=== PATIENT | male | born 1930 | race Caucasian/White ===

== ENCOUNTER 2018-10-05 17:24 | Inpatient (IN) | payer MEDICARE, OTHER ==
[2018-10-05] MEDS ORDERED: SODIUM CHLORIDE 0.9% 1,000 ML IV STA (18:20)
[2018-10-05 18:47] LABS: Albumin 3.7 g/dL (3.5-5.0); Calcium 9.7 mg/dL (8.4-10.2); Potassium 4.1 mmol/L (3.5-5.1); Total Bilirubin 2.2 mg/dL (0.2-1.3); Total Protein 6.6 g/dL (6.3-8.2)
[2018-10-05 18:51] LABS: INR 1.1 (<1.2); Prothrombin Time 10.9 sec (9.0-12.0)
[2018-10-05 18:52] LABS: Partial Thromboplastin Time 20.8 sec (22.0-30.0)
[2018-10-05 18:53] LABS: Creatine Kinase 517 U/L (55-170)
--- NOTE | 2018-10-05 18:54 | XR ---
EXAMINATION TYPE: XR chest 2V DATE OF EXAM: 10/05/2018 COMPARISON: 03/24/2015 HISTORY: Shortness of breath and dizziness TECHNIQUE: Frontal and lateral views of the chest are obtained. FINDINGS: Minimal cephalization is seen in combination with cardiomegaly and postsurgical changes of the chest. No sizable pleural effusion or pneumothorax. Osseous structures are grossly intact. IMPRESSION: Minimal pulmonary vascular congestion and cardiomegaly suggest decompensated congestive heart failure.
[2018-10-05 18:56] LABS: Basophils % (A) 0 %; Eosinophils # (A) 0.1 k/uL (0-0.7); Eosinophils % (A) 1 %; HCT 35.6 % (39.0-53.0); HGB 11.6 gm/dL (13.0-17.5); Lymphocytes # (A) 0.6 k/uL (1.0-4.8); Lymphocytes % (A) 6 %; MCH 30.1 pg (25.0-35.0); MCHC 32.6 g/dL (31.0-37.0); MCV 92.3 fL (80.0-100.0); Monocytes # (A) 0.6 k/uL (0-1.0); Monocytes % (A) 7 %; Neutrophils # (A) 7.4 k/uL (1.3-7.7); Neutrophils % (A) 85 %; Platelet Count 161 k/uL (150-450); RBC 3.86 m/uL (4.30-5.90); WBC 8.6 k/uL (3.8-10.6)
[2018-10-05 19:07] LABS: Creatine Kinase MB 1.2 ng/mL (0.0-2.4); Troponin I <0.012 ng/mL (0.000-0.034)
--- NOTE | 2018-10-05 19:33 | ED ---
Dizziness HPI <JohnChandana - Last Filed: 10/05/18 21:54> - General Source: patient, family Mode of arrival: wheelchair Limitations: no limitations <Sunshine Matute - Last Filed: 10/05/18 22:18> - General Chief Complaint: Dizziness Stated Complaint: Fall Time Seen by Provider: 10/05/18 18:03 - History of Present Illness Initial Comments: 88-year-old male patient presents to the emergency department today with chief complaint of dizziness, weakness, and vomiting. Patient states that symptoms started earlier today after having breakfast. States that he had multiple episodes of vomiting. He states that he has been having some discomfort to his upper abdomen and shortness of breath with this. States he has been having diarrhea for the last 2 weeks and has been working with his primary care physician to rule out food ALLERGIES and they did switch his diabetic medication. Denies any fevers or chills with this. Denies any hematuria, dysuria, urinary frequency, urinary urgency. He denies any chest pain, sweats, numbness, tingling. Denies any ear pain or upper respiratory symptoms. Patient denies any recent rash, back pain, numbness, tingling, hematuria, headache, visual changes, or any other complaints. (Sunshine Matute) - Related Data Home Medications Medication Instructions Recorded Confirmed Allopurinol [Zyloprim] 100 mg PO DAILY 10/05/18 10/05/18 Ascorbic Acid [Vitamin C] 250 mg PO DAILY 10/05/18 10/05/18 Aspirin 81 mg PO DAILY 10/05/18 10/05/18 Diclofenac Sodium [Voltaren Gel] 2 gram TOPICAL QID 10/05/18 10/05/18 Fluticasone Nasal [place] [Flonase 2 spr EA NOSTRIL DAILY 10/05/18 10/05/18 Nasal [place]] Gabapentin [Neurontin] 100 mg PO BID 10/05/18 10/05/18 Glimepiride [Amaryl] 2 mg PO AC-[id number] 10/05/18 10/05/18 Levothyroxine Sodium 25 mcg PO DAILY 10/05/18 10/05/18 Lisinopril [Zestril] 5 mg PO DAILY 10/05/18 10/05/18 Meclizine [Antivert] 25 mg PO TID PRN 10/05/18 10/05/18 Metoprolol Tartrate [Lopressor] 25 mg PO BID 10/05/18 10/05/18 Montelukast [Singulair] 10 mg PO HS 10/05/18 10/05/18 Pancreatin 325mg 325 - 650 mg PO AC-TID 10/05/18 10/05/18 Pioglitazone [Actos] 30 mg PO DAILY 10/05/18 10/05/18 Pravastatin Sodium [Pravachol] 20 mg PO HS 10/05/18 10/05/18 Tamsulosin [Flomax] 0.4 mg PO DAILY 10/05/18 10/05/18 Allergies Allergy/AdvReac Type Severity Reaction Status Date / Time No Known Allergies Allergy Verified 10/05/18 19:05 Review of Systems ROS Other: All systems not noted in ROS Statement are negative. <Chandana Lopez - Last Filed: 10/05/18 21:54> ROS Other: All systems not noted in ROS Statement are negative. <Sunshine Matute - Last Filed: 10/05/18 22:18> ROS Statement: Those systems with pertinent positive or pertinent negative responses have been documented in the HPI. Past Medical History Past Medical History: Diabetes Mellitus, Hypertension History of Any Multi-Drug Resistant Organisms: None Reported Past Surgical History: Coronary Bypass/CABG Past Psychological History: No Psychological Hx Reported Smoking Status: Never smoker Past Alcohol Use History: None Reported Past Drug Use History: None Reported <Sunshine Matute - Last Filed: 10/05/18 22:18> General Exam Limitations: no limitations General appearance: alert, in no apparent distress, other (This is a well- developed, well-nourished elderly male patient in no acute distress. Vital signs upon presentation are temperature 98.1F, pulse 79, respirations 18, blood pressure 99/62, pulse ox 97% on room air.) Eye exam: Present: normal appearance, PERRL, EOMI. Absent: scleral icterus, conjunctival injection, periorbital swelling ENT exam: Present: normal exam, normal oropharynx, mucous membranes moist Respiratory exam: Present: normal lung sounds bilaterally. Absent: respiratory distress, wheezes, rales, rhonchi, stridor Cardiovascular Exam: Present: regular rate, normal rhythm, normal heart sounds. Absent: systolic murmur, diastolic murmur, rubs, gallop, clicks GI/Abdominal exam: Present: soft, normal bowel sounds. Absent: distended, tenderness, guarding, rebound, rigid Neurological exam: Present: alert, oriented X3, CN II-XII intact Psychiatric exam: Present: normal affect, normal mood Skin exam: Present: warm, dry, intact, normal color. Absent: rash <Sunshine Matute - Last Filed: 10/05/18 22:18> Vital Signs 10/05/18 10/05/18 10/05/18 17:38 18:30 19:00 Temperature 98.1 F Pulse Rate 79 83 84 Respiratory 18 18 18 Rate Blood Pressure 99/62 116/73 114/55 O2 Sat by Pulse 97 Oximetry 10/05/18 10/05/18 10/05/18 20:00 20:30 21:00 Temperature Pulse Rate 80 89 90 Respiratory 12 18 16 Rate Blood Pressure 116/66 101/50 109/52 O2 Sat by Pulse Oximetry EKG Findings - EKG Comments: EKG Findings:: EKG obtained at 1810 shows sinus rhythm with a first-degree AV block with frequent PVCs, bigeminy. Ventricular rate is 90, [place] interval 226, QRS duration 86, QT 354, QTC 433. No evidence of ST elevation or depression. <Sunshine Matute - Last Filed: 10/05/18 22:18> Medical Decision Making - Lab Data Result diagrams: 10/05/18 18:15 10/05/18 18:15 <Chandana Lopez - Last Filed: 10/05/18 21:54> - Lab Data Result diagrams: 10/05/18 18:15 10/05/18 18:15 - Radiology Data Radiology results: report reviewed, image reviewed <Sunshine Matute - Last Filed: 10/05/18 22:18> - Medical Decision Making Medical decision making; this is an 88-year-old male here with family. The patient has had diarrhea for 2 weeks. Come in today because of persistent diarrhea and feeling weak. Examination finds only mild tenderness with deep palpation to the right upper quadrant. Labs show mild dehydration with a BUN of 27 creatinine 1.36 and a GFR of 46. His liver enzymes are significantly elevated total bilirubin is 2.2 AST T is over 4000 ALT is over 1900 alk phos is 301. Patient's troponin is less than 0.012. Lipase mildly elevated at 377. the patient is unsure of past hepatitis injections or immunizations. States he hasn't noticed any significant change in color stool those urine does look darker. The case discussed with Dr. Dow , patient be admitted to her service with consultation from GI. Dr. Lopez (Chandana Lopez) 88-year-old male patient presents the emergency department today for complaints of vomiting, but abdominal pain, dizziness, and weakness. Labs reviewed and did reveal elevated BUN and creatinine. Patient did have elevated AST over 4000 and ALT over 1900. Alk phos is 301. Lipase is mildly elevated at 377. Patient denies history of any liver problems. Patient did recently have a change in his diabetic medication due to having diarrhea for the past 2 weeks. Patient is afebrile. Reportedly mild abdominal pain. Vital signs are stable. He'll be admitted to the hospital for IV fluid hydration and evaluation by gastroenterology. Did discuss findings and results with patient and family. They're agreeable with this plan. (Sunshine Matute) - Lab Data Lab Results 10/05/18 10/05/18 10/05/18 Range/Units 18:15 18:15 18:15 WBC 8.6 (3.8-10.6) k/uL RBC 3.86 L (4.30-5.90) m/uL Hgb 11.6 L (13.0-17.5) gm/dL Hct 35.6 L (39.0-53.0) % MCV 92.3 (80.0-100.0) fL MCH 30.1 (25.0-35.0) pg MCHC 32.6 (31.0-37.0) g/dL RDW 14.0 (11.5-15.5) % Plt Count 161 (150-450) k/uL Neutrophils % 85 % Lymphocytes % 6 % Monocytes % 7 % Eosinophils % 1 % Basophils % 0 % Neutrophils # 7.4 (1.3-7.7) k/uL Lymphocytes # 0.6 L (1.0-4.8) k/uL Monocytes # 0.6 (0-1.0) k/uL Eosinophils # 0.1 (0-0.7) k/uL Basophils # 0.0 (0-0.2) k/uL PT (9.0-12.0) sec INR (<1.2) APTT (22.0-30.0) sec Sodium 137 (137-145) mmol/L Potassium 4.1 (3.5-5.1) mmol/L Chloride 105 (98-107) mmol/L Carbon Dioxide 23 (22-30) mmol/L Anion Gap 9 mmol/L BUN 27 H (9-20) mg/dL Creatinine 1.36 H (0.66-1.25) mg/dL Est GFR (CKD-EPI)AfAm 54 (>60 ml/min/1.73 sqM) Est GFR (CKD-EPI)NonAf 46 (>60 ml/min/1.73 sqM) Glucose 211 H (74-99) mg/dL Calcium 9.7 (8.4-10.2) mg/dL Total Bilirubin 2.2 H (0.2-1.3) mg/dL AST 4037 H (17-59) U/L ALT 1963 H (21-72) U/L Alkaline Phosphatase 301 H (38-126) U/L Total Creatine Kinase 517 H (55-170) U/L CK-MB (CK-2) 1.2 (0.0-2.4) ng/mL CK-MB (CK-2) Rel Index 0.2 Troponin I <0.012 (0.000-0.034) ng/mL Total Protein 6.6 (6.3-8.2) g/dL Albumin 3.7 (3.5-5.0) g/dL Amylase (30-110) U/L Lipase (23-300) U/L Urine Color Urine Appearance (Clear) Urine pH (5.0-8.0) Ur Specific [place] (1.001-1.035) Urine Protein (Negative) Urine Glucose (UA) (Negative) Urine Ketones (Negative) Urine Blood (Negative) Urine Nitrite (Negative) Urine Bilirubin (Negative) Urine Urobilinogen (<2.0) mg/dL Ur Leukocyte Esterase (Negative) Urine RBC (0-5) /hpf Urine WBC (0-5) /hpf Ur Squamous Epith Cells (0-4) /hpf Urine Mucus (None) /hpf 10/05/18 10/05/18 10/05/18 Range/Units 18:15 18:15 19:25 WBC (3.8-10.6) k/uL RBC (4.30-5.90) m/uL Hgb (13.0-17.5) gm/dL Hct (39.0-53.0) % MCV (80.0-100.0) fL MCH (25.0-35.0) pg MCHC (31.0-37.0) g/dL RDW (11.5-15.5) % Plt Count (150-450) k/uL Neutrophils % % Lymphocytes % % Monocytes % % Eosinophils % % Basophils % % Neutrophils # (1.3-7.7) k/uL Lymphocytes # (1.0-4.8) k/uL Monocytes # (0-1.0) k/uL Eosinophils # (0-0.7) k/uL Basophils # (0-0.2) k/uL PT 10.9 (9.0-12.0) sec INR 1.1 (<1.2) APTT 20.8 L (22.0-30.0) sec Sodium (137-145) mmol/L Potassium (3.5-5.1) mmol/L Chloride (98-107) mmol/L Carbon Dioxide (22-30) mmol/L Anion Gap mmol/L BUN (9-20) mg/dL Creatinine (0.66-1.25) mg/dL Est GFR (CKD-EPI)AfAm (>60 ml/min/1.73 sqM) Est GFR (CKD-EPI)NonAf (>60 ml/min/1.73 sqM) Glucose (74-99) mg/dL Calcium (8.4-10.2) mg/dL Total Bilirubin (0.2-1.3) mg/dL AST (17-59) U/L ALT (21-72) U/L Alkaline Phosphatase (38-126) U/L Total Creatine Kinase (55-170) U/L CK-MB (CK-2) (0.0-2.4) ng/mL CK-MB (CK-2) Rel Index Troponin I (0.000-0.034) ng/mL Total Protein (6.3-8.2) g/dL Albumin (3.5-5.0) g/dL Amylase 49 (30-110) U/L Lipase 377 H (23-300) U/L Urine Color Yellow Urine Appearance Cloudy (Clear) Urine pH 6.5 (5.0-8.0) Ur Specific [place] 1.012 (1.001-1.035) Urine Protein 1+ H (Negative) Urine Glucose (UA) Negative (Negative) Urine Ketones Negative (Negative) Urine Blood Moderate H (Negative) Urine Nitrite Negative (Negative) Urine Bilirubin Negative (Negative) Urine Urobilinogen 2.0 (<2.0) mg/dL Ur Leukocyte Esterase Negative (Negative) Urine RBC <1 (0-5) /hpf Urine WBC 1 (0-5) /hpf Ur Squamous Epith Cells 1 (0-4) /hpf Urine Mucus Rare H (None) /hpf - Radiology Data Two-view x-ray of the chest is obtained. Report was reviewed in its entirety. Impression by Dr. Naik shows minimal pulmonary vascular congestion and cardiomegaly suggest decompensated congestive heart failure. Ultrasound of the abdomen was obtained. Report was reviewed in its entirety. Impression by Dr. Naik shows slightly heterogenous and coarsened hepatic echotexture suboptimally visualized due to overlying bowel gas. Mild hepatic steatosis is suspected. Subsegmental polyps versus small non-shadowing cholelithiasis is seen. No sonographic evidence of acute cholecystitis. 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 (Sunshine Matute) Disposition <Chandana Lopez - Last Filed: 10/05/18 21:54> Decision to Admit Reason: Admit from EC Decision Date: 10/05/18 Decision Time: 22:18 <Sunshine Matute - Last Filed: 10/05/18 22:18> Clinical Impression: Transaminitis, Abdominal pain, Diarrhea Disposition: ADMITTED IP TO THIS [facility] Condition: Serious Referrals: Guzman Olvera MD [Primary Care Provider] - 1-2 days
[2018-10-05 19:42] LABS: Appearance,Urine Cloudy (Clear); Bilirubin,Urine Negative (Negative); Blood,Urine Moderate (Negative); Color,Urine Yellow; Glucose,Urine (UA) Negative (Negative); Ketones,Urine Negative (Negative); Leukocyte Esterase,Urine Negative (Negative); Mucus,Urine Rare /hpf; Nitrite,Urine Negative (Negative); PH, Urine 6.5 (5.0-8.0); Protein,Urine 1+ (Negative); RBC,Urine <1 /hpf (0-5); Specific Gravity,Urine 1.012 (1.001-1.035); Squamous Epithelial Cell,Urine 1 /hpf (0-4); WBC,Urine 1 /hpf (0-5)
[2018-10-05 19:45] LABS: Amylase 49 U/L (30-110); Lipase 377 U/L (23-300)
--- NOTE | 2018-10-05 21:44 | US ---
EXAMINATION TYPE: US abdomen limited DATE OF EXAM: 10/05/2018 COMPARISON: NONE CLINICAL HISTORY: Elevated Liver Enzymes. EXAM MEASUREMENTS: Liver Length: 15.7 cm Gallbladder Wall: 0.2 cm CBD: 0.5 cm Right Kidney: 9.7 x 4.0 x 4.5 cm Limited due to bowel gas. Pancreas: Obscured by bowel gas Liver: Limited visualization although slightly heterogenous. Gallbladder: echogenic non-shadowing area seen likely polyp versus small stone Evidence for sonographic Malcolm's sign: No CBD: wnl Right Kidney: Cortical thinning is noted. No hydronephrosis. IMPRESSION: 1. Slightly heterogenous and coarsened hepatic echotexture is suboptimally visualized due to overlyin g bowel gas. Mild hepatic steatosis is suspected. 2. Subcentimeter polyps versus small nonshadowing cholelithiasis seen. No sonographic evidence of acu te cholecystitis. 3. 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
[2018-10-05] MEDS ORDERED: NALOXONE 0.4 MG/ML 1 ML VIAL IV PRN (22:02)
[2018-10-05] MEDS ORDERED: ONDANSETRON 4 MG/2 ML VIAL IVP PRN (22:02)
[2018-10-05] MEDS ORDERED: MECLIZINE 12.5 MG TAB PO PRN (22:05)
[2018-10-05] MEDS ORDERED: HYDROmorphone 1 MG/ML 1 ML SYRINGE IVP PRN (22:14)
[2018-10-06 01:17] VITALS: BMI 28.8
[2018-10-06] MEDS: SODIUM CHLORIDE 0.9% 1,000 ML IV SCH ×3 (01:18→21:33)
[2018-10-06 03:22] LABS: Hepatitis A AB IgM Index 0.01; Hepatitis A Antibody IgM NEGATIVE
[2018-10-06] MEDS: LEVOTHYROXINE 25 MCG TAB PO SCH (06:22)
[2018-10-06] MEDS ORDERED: GLIMEPIRIDE 2 MG TAB PO SCH (07:30)
[2018-10-06] MEDS: TAMSULOSIN 0.4 MG CAP.ER.24H PO SCH (09:00)
[2018-10-06] MEDS: LISINOPRIL 5 MG TAB PO SCH (09:01)
[2018-10-06] MEDS: ASCORBIC ACID 500 MG TAB PO SCH (09:01)
[2018-10-06] MEDS: PIOGLITAZONE 30 MG TAB PO SCH (09:01)
[2018-10-06] MEDS: GABAPENTIN 100 MG CAP PO SCH ×2 (09:01→21:33)
[2018-10-06] MEDS: METOPROLOL TARTRATE 50 MG TAB PO SCH ×2 (09:01→21:32)
[2018-10-06] MEDS: ASPIRIN 81 MG PO SCH (09:01)
[2018-10-06] MEDS: DICLOFENAC SODIUM GEL 100 GM TUBE TOPICAL SCH ×4 (09:33→21:32)
[2018-10-06] MEDS: FLUTICASONE 50MCG/SPRAY NASAL 16GM EA NOSTRIL SCH (09:33)
[2018-10-06 09:38] LABS: Basophils % (A) 0 %; Eosinophils # (A) 0.3 k/uL (0-0.7); Eosinophils % (A) 3 %; HCT 30.2 % (39.0-53.0); HGB 10.1 gm/dL (13.0-17.5); Lymphocytes % (A) 11 %; MCH 30.7 pg (25.0-35.0); MCHC 33.5 g/dL (31.0-37.0); MCV 91.5 fL (80.0-100.0); Mean Platelet Volume 8.2; Monocytes # (A) 0.5 k/uL (0-1.0); Monocytes % (A) 5 %; Neutrophils # (A) 7.5 k/uL (1.3-7.7); Neutrophils % (A) 81 %; Platelet Count 165 k/uL (150-450); WBC 9.3 k/uL (3.8-10.6)
[2018-10-06 09:50] LABS: Albumin 3.1 g/dL (3.5-5.0); Calcium 9.1 mg/dL (8.4-10.2); Potassium 4.1 mmol/L (3.5-5.1); Total Bilirubin 2.2 mg/dL (0.2-1.3); Total Protein 5.7 g/dL (6.3-8.2)
[2018-10-06] MEDS ORDERED: IOPAMIDOL-300 CONTRAST 30 ML VIAL (ORAL USE) PO PRN (10:47)
[2018-10-06] MEDS ORDERED: LEVOFLOXACIN 500MG-D5W PMX 500 MG in DEXTROSE/WATER 1 100ML.BAG IVPB SCH (11:00)
[2018-10-06 12:41] LABS: Hepatitis B Core IgM Non-Reactive (Non-Reactive)
[2018-10-06] MEDS: VANCOMYCIN ORAL SOLUTION 250 MG/5 ML BOTTLE PO SCH ×2 (12:45→17:53)
[2018-10-06] MEDS: INSULIN ASPART 100 UNIT/ML 1 ML 10 ML VIAL SQ SCH ×3 (13:15→21:33)
[2018-10-06 13:30] LABS: Glucose,Whole Blood 81 mg/dL (75-99)
--- NOTE | 2018-10-06 14:41 | CT ---
EXAMINATION TYPE: CT abdomen w con DATE OF EXAM: 10/06/2018 COMPARISON: Ultrasound 10/05/2018 HISTORY: Generalized abdominal pain, vomiting, and diarrhea. CT DLP: 822.1 mGycm Automated exposure control for dose reduction was used. TECHNIQUE: Helical acquisition of images was performed from the lung bases through the top of iliac crest to include entire abdomen. CONTRAST: Performed with Oral Contrast and with IV Contrast, patient injected with 80 mL of Isovue 300. FINDINGS: LUNG BASES: Heart is markedly enlarged there subsegmental consolidation at both lung bases with tiny right pleural effusion. Interlobular septal thickening suggest a degree of chronic underlying interst itial lung disease. Sternotomy wires are noted. LIVER/GB: Mild wall thickening of the gallbladder. Could not exclude tiny gallstones as reported by u ltrasound. Mild central periportal edema is nonspecific. No discrete mass identified. PANCREAS: No significant abnormality is seen. SPLEEN: Tiny accessory spleen seen. ADRENALS: No significant abnormality is seen. KIDNEYS: No significant abnormality is seen. BOWEL: Diverticulosis of the visualized colon. Stomach is somewhat decompressed and limited in asses sment. There is a small hiatal hernia. Mild wall thickening of the gastric antrum and proximal duoden um may be related decompression rather than inflammatory change. Diverticulum of the proximal duodenu m suspected. Mild prominence of a few small bowel loops in the upper abdomen may been the basis of an enteritis. Retained fecal debris in the colon limits its assessment. Visualized portion of the hepat ic flexure transverse colon is limited due to incomplete distention. LYMPH NODES: No significant abnormality is seen. OSSEOUS STRUCTURES: Mild hypertrophic change of the spine.. FREE AIR: No free air is visualized. OTHER: Atherosclerotic change of the vasculature. Epicardial lead noted. Mild ectasia of the abdomina l aorta measuring 2.4 cm without evidence of discrete aneurysm. IMPRESSION: 1. Mild periportal central edema is nonspecific of questionable significance. 2. There are prominent small bowel loops in the upper abdomen correlate for an enteritis or ileus. Th ere is slight rotation of the mesentery but there is normal enhancement of the visualized mesenteric vasculature correlate clinically. Note is made only a CT of the abdomen was performed which does not include the pelvic bowel loops. 3. Diverticulosis of colon. 4. Mild gallbladder distention with tiny gallstones polyp as previously noted by ultrasound. 5. Slightly heterogeneous enhancement pattern of the liver can be associated with hepatic steatosis o r hepatitis, diffuse hepatocellular disease. Correlate clinically. No discrete mass. 6 basilar atelec tasis with tiny right effusion and findings suggestive of chronic interstitial lung disease.
--- NOTE | 2018-10-06 15:59 | P.HPIM ---
History of Present Illness H&P Date: 10/06/18 88 years old male with past medical history of diabetes and hypertension comes in with increasing weakness nausea and vomiting. According to patient he was doing well until yesterday when he was having his breakfast followed by multiple episodes of vomiting. Patient also complained of some abdominal pain associated with diarrhea that was happening for the past 1 month. Patient has seen his primary care Dr. cyr for the following symptoms and was evaluated for lactose intolerance or food ALLERGIES. He was recently surgically treated for an abscess on his left shoulder for which patient was on antibiotics for 10 days. According to the patient's symptoms have worsened since he completed the antibiotics. Vitals evaluated suggested a temp of 98.1, blood pressure 99/62 respiratory rate 18. CBC suggested a hemoglobin of 11.6 no leukocytosis 8.6, creatinine 1.36, BUN 27. Further lab suggested a total bilirubin of 2.2, AST 4037, ALT 1963, alkaline phosphatase 301, CK 517, lipase 300 UA was negative for any infection does have some moderate blood. Renal ultrasound was obtained which was nondiagnostic as bowels were covering the liver. Some gallstones were visualized. Cortical renal thinning of medical renal disease seen without hydronephrosis. On evaluation patient feels better denies any nausea or vomiting this morning but does complain of abdominal pain. CT abdomen was ordered which is concerning for mild ileitis enteritis in the upper abdomen. Patient was nothing by mouth to this morning was switched to clear liquid diet. C. diff ordered. Hepatitis panel ordered. GOMEZ, smooth muscles, antimitochondrial antibody, ferritin, CEA ordered. Review of Systems Constitutional: Endorses chills, Denies fever, endorses lethargy, Eyes: denies decreased vision, denies diplopia, denies discharge, denies pain Ears: deny: decreased hearing Ears, nose, mouth and throat: Denies dental pain, Denies headache, Denies nasal discharge, Denies nose pain Cardiovascular: Denies chest pain, Denies decreased exercise tolerance, Denies edema, Denies high blood pressure, Denies irregular heart beat, Denies palpitations, Denies paroxysmal nocturnal dyspnea, Denies rapid heart beat, Denies shortness of breath Respiratory: Denies congestion, Denies cough, Denies cough with sputum, Denies dyspnea, Denies home oxygen, Denies wheezing Gastrointestinal: Endorses diffuse abdominal pain, endorses change in bowel habits, Denies coffee ground emesis, Denies early satiety, Denies excessive gas , Denies heartburn, Denies hematemesis, Denies hematochezia, Denies loss of appetite, Denies nausea, Denies vomiting Genitourinary: Denies dysuria, Denies flank pain, Denies kidney stones, Denies menorrhagia, Denies urgency, Denies urinary frequency Musculoskeletal: Denies gait dysfunction, Denies limitation of motion, Denies morning stiffness, Denies muscle cramps Integumentary: Denies rash, Denies wounds, Denies brittle nails, Denies change in hair/nails, Denies darkening of skin Neurological: Denies balance difficulties, Denies change in speech, Denies double vision, Denies gait dysfunction, Denies loss of vision, Denies motor disturbance, Denies numbness, Denies paralysis, Denies paresthesias, Denies seizures Psychiatric: Denies anxiety, Denies depression Endocrine: Denies excessive sweating, Denies excessive thirst, Denies high blood sugars, Denies palpitations Hematologic/Lymphatic: Denies easy bruising, Denies lymphadenopathy Past Medical History Past Medical History: Asthma, Diabetes Mellitus, GERD/Reflux, Hypertension, Pneumonia Additional Past Medical History / Comment(s): TIA in 2004, vein stripping bilateral legs, arthritis in most joints, History of Any Multi-Drug Resistant Organisms: None Reported Past Surgical History: Coronary Bypass/CABG Past Anesthesia/Blood Transfusion Reactions: No Reported Reaction Past Psychological History: No Psychological Hx Reported Smoking Status: Never smoker Past Alcohol Use History: None Reported Past Drug Use History: None Reported Medications and Allergies Home Medications Medication Instructions Recorded Confirmed Type Allopurinol [Zyloprim] 100 mg PO DAILY 10/05/18 10/05/18 History Ascorbic Acid [Vitamin C] 250 mg PO DAILY 10/05/18 10/05/18 History Aspirin 81 mg PO DAILY 10/05/18 10/05/18 History Diclofenac Sodium [Voltaren Gel] 2 gram TOPICAL QID 10/05/18 10/05/18 History Fluticasone Nasal [place] [Flonase 2 spr EA NOSTRIL DAILY 10/05/18 10/05/18 History Nasal [place]] Gabapentin [Neurontin] 100 mg PO BID 10/05/18 10/05/18 History Glimepiride [Amaryl] 2 mg PO AC-BRKFST 10/05/18 10/05/18 History Levothyroxine Sodium 25 mcg PO DAILY 10/05/18 10/05/18 History Lisinopril [Zestril] 5 mg PO DAILY 10/05/18 10/05/18 History Meclizine [Antivert] 25 mg PO TID PRN 10/05/18 10/05/18 History Metoprolol Tartrate [Lopressor] 25 mg PO BID 10/05/18 10/05/18 History Montelukast [Singulair] 10 mg PO HS 10/05/18 10/05/18 History Pancreatin 325mg 325 - 650 mg PO AC-TID 10/05/18 10/05/18 History Pioglitazone [Actos] 30 mg PO DAILY 10/05/18 10/05/18 History Pravastatin Sodium [Pravachol] 20 mg PO HS 10/05/18 10/05/18 History Tamsulosin [Flomax] 0.4 mg PO DAILY 10/05/18 10/05/18 History Allergies Allergy/AdvReac Type Severity Reaction Status Date / Time No Known Allergies Allergy Verified 10/05/18 19:05 Physical Exam Vitals: Vital Signs Temp Pulse Pulse Pulse Resp BP BP 10/06/18 07:00 98.6 F 70 16 133/72 10/06/18 02:11 98.5 F 96 62 16 118/61 10/05/18 21:00 90 16 109/52 10/05/18 20:30 89 18 101/50 10/05/18 20:00 80 12 116/66 10/05/18 19:00 84 18 114/55 10/05/18 18:30 83 18 116/73 10/05/18 17:38 98.1 F 79 18 99/62 Pulse Ox 10/06/18 07:00 93 L 10/06/18 02:11 10/05/18 21:00 10/05/18 20:30 10/05/18 20:00 10/05/18 19:00 10/05/18 18:30 10/05/18 17:38 97 Intake and Output 10/06/18 10/06/18 10/06/18 06:59 14:59 22:59 Intake Total 400 Balance 400 Intake: Intake, IV Titration 400 Amount Sodium Chloride 0.9% 1, 400 000 ml @ 80 mls/hr IV . [id number] [facility] Rx#:[id number] Other: Weight 83.461 kg - Constitutional General appearance: cooperative, no acute distress, obese - EENT Eyes: anicteric sclerae, PERRLA, normal appearance ENT: Hard of hearing- Neck Neck: no lymphadenopathy, normal ROM, no other, no rigidity, no stridor, no thyromegaly - Respiratory Respiratory: bilateral: CTA, negative: diminished, dullness, rales, rhonchi - Cardiovascular Rhythm: regular Heart sounds: normal: S1, S2 Abnormal Heart Sounds: no systolic murmur, no diastolic murmur, no rub, no S3 Gallop, no S4 Gallop, no click, no other - Gastrointestinal General gastrointestinal: Diffuse abdominal tenderness, soft to palpate no distention bowel sounds present - Integumentary Integumentary: no rash - Neurologic Neurologic: CNII-XII intact - Musculoskeletal Musculoskeletal: gait normal, strength equal bilaterally - Psychiatric Psychiatric: A&O x's 3, appropriate affect Results CBC & Chem 7: 10/06/18 09:08 10/06/18 09:08 Labs: Abnormal Lab Results - Last 24 Hours (Table) 10/05/18 10/05/18 10/05/18 Range/Units 18:15 18:15 18:15 RBC 3.86 L (4.30-5.90) m/uL Hgb 11.6 L (13.0-17.5) gm/dL Hct 35.6 L (39.0-53.0) % Lymphocytes # 0.6 L (1.0-4.8) k/uL APTT (22.0-30.0) sec Chloride (98-107) mmol/L BUN 27 H (9-20) mg/dL Creatinine 1.36 H (0.66-1.25) mg/dL Glucose 211 H (74-99) mg/dL Total Bilirubin 2.2 H (0.2-1.3) mg/dL AST 4037 H (17-59) U/L ALT 1963 H (21-72) U/L Alkaline Phosphatase 301 H (38-126) U/L Total Creatine Kinase 517 H (55-170) U/L Total Protein (6.3-8.2) g/dL Albumin (3.5-5.0) g/dL Lipase (23-300) U/L Urine Protein (Negative) Urine Blood (Negative) Urine Mucus (None) /hpf 10/05/18 10/05/18 10/05/18 Range/Units 18:15 18:15 19:25 RBC (4.30-5.90) m/uL Hgb (13.0-17.5) gm/dL Hct (39.0-53.0) % Lymphocytes # (1.0-4.8) k/uL APTT 20.8 L (22.0-30.0) sec Chloride (98-107) mmol/L BUN (9-20) mg/dL Creatinine (0.66-1.25) mg/dL Glucose (74-99) mg/dL Total Bilirubin (0.2-1.3) mg/dL AST (17-59) U/L ALT (21-72) U/L Alkaline Phosphatase (38-126) U/L Total Creatine Kinase (55-170) U/L Total Protein (6.3-8.2) g/dL Albumin (3.5-5.0) g/dL Lipase 377 H (23-300) U/L Urine Protein 1+ H (Negative) Urine Blood Moderate H (Negative) Urine Mucus Rare H (None) /hpf 10/06/18 10/06/18 Range/Units 09:08 09:08 RBC 3.30 L (4.30-5.90) m/uL Hgb 10.1 L (13.0-17.5) gm/dL Hct 30.2 L (39.0-53.0) % Lymphocytes # (1.0-4.8) k/uL APTT (22.0-30.0) sec Chloride 108 H (98-107) mmol/L BUN 24 H (9-20) mg/dL Creatinine 1.31 H (0.66-1.25) mg/dL Glucose (74-99) mg/dL Total Bilirubin 2.2 H (0.2-1.3) mg/dL AST 1630 H (17-59) U/L ALT 1292 H (21-72) U/L Alkaline Phosphatase 240 H (38-126) U/L Total Creatine Kinase (55-170) U/L Total Protein 5.7 L (6.3-8.2) g/dL Albumin 3.1 L (3.5-5.0) g/dL Lipase (23-300) U/L Urine Protein (Negative) Urine Blood (Negative) Urine Mucus (None) /hpf Thrombosis Risk Factor Assmnt - DVT/VTE Prophylaxis DVT/VTE Prophylaxis: Pharmacologic Prophylaxis ordered, Mechanical Prophylaxis ordered - Choose All That Apply Any of the Below Risk Factors Present?: No Other Risk Factors: No Each Risk Factor Represents 3 Points: Age 75 years or older Thrombosis Risk Factor Assessment Total Risk Factor Score: 3 Thrombosis Risk Factor Assessment Level: Very Low Risk Assessment and Plan Plan: #1 acute colitis/ileitis likely secondary to a C. diff. Other possibility includes viral gastroenteritis, acute hepatitis. GI consult placed. Patient initiated on levofloxacin and oral vancomycin. C. diff pending. Fecal occult pending. Stool culture pending start CT abdomen concerning for ileitis/ enteritis. With heterogenous liver concerning for acute hepatitis versus diffuse hepatocellular disease. No evidence of acute cholangitis #2 acute transaminitis likely secondary to hypoperfusion though acute hepatitis cannot be ruled out. Hepatitis panel ordered. Autoimmune workup pending. Hematocrit mitosis pending. CEA ordered. GI consult and recommendation pending #3 acute anemia. No baseline hemoglobin present. Patient has a drop of hemoglobin from 11.6-10.1 this morning. Fecal occult ordered. I iron panel ordered #4 hypertension continue 5 mg by mouth daily, metoprolol 25 mg twice a day #5 type 2 diabetes and high Hold Demerol. Continue Actos 30 mg by mouth daily #6 BPH continue Flomax 0.4 mg by mouth daily CODE STATUS full code Disposition patient needs at least 1-2 inpatient nights for symptoms resolution
[2018-10-06 16:25] LABS: Hepatitis A Antibody IgM Non-Reactive (Non-Reactive)
[2018-10-06 17:10] LABS: Glucose,Whole Blood 52 mg/dL (75-99)
[2018-10-06 17:14] LABS: Hemoglobin A1C 7.2 % (4.0-6.0)
[2018-10-06 17:33] LABS: Glucose,Whole Blood 77 mg/dL (75-99)
[2018-10-06 20:12] LABS: Glucose,Whole Blood 182 mg/dL (75-99)
--- NOTE | 2018-10-06 22:51 | P.CONS ---
History of Present Illness - Reason for Consult Consult date: 10/06/18 Transaminitis Requesting physician: Iván Reilly - Chief Complaint Dizzy, weak, vomiting - History of Present Illness Very pleasant 88-year-old male with a medical history significant for asthma, hypertension and diabetes who presented to the hospital with complaints of dizziness, weakness and 1 day of vomiting. Per the patient she had multiple episodes of vomiting predominantly food which she had eaten earlier in the day. She denies any hematemesis or coffee-ground emesis. He's had no further vomiting since presenting to the hospital. In addition the patient had associated dizziness and weakness. He also reports upper GI discomfort described as achiness in his lower abdomen below the belly button. He denies any association with eating but reports that pain is improved with bowel movements. The patient also reports that he had had approximately 10 days of loose stool prior to presentation. He reports recent antibiotics which he finished approximately 5 days ago, but is unsure what antibiotics she was on as an outpatient. He reports that bowel movements were loose with no blood or black stool noted. Today he reports only 1 loose bowel movement. He reports that he was having workup for the loose stool as an outpatient with his primary care physician. Presentation to the hospital the patient was noted to have an elevation in his liver enzymes which have subsequently trended down with a total bilirubin of 2.2 which was found to be 2.2 on repeat, alkaline phosphatase 301 trending to 240, AST 4037 trending to 1630, and aLt 1963 trending to 1292. The patient denies any prior EGD had a colonoscopy approximately 2-3 years ago which was significant for polyps. On presentation ultrasound showed a heterogeneous coarsened liver with findings of cholelithiasis versus gallbladder polyps. CT showed a mildly distended gallbladder, prominent small bowel loops a liver with slightly coarsened echotexture and diverticulosis. Review of Systems REVIEW OF SYSTEMS: CARDIO: Denies any chest pain or palpitations. PULMONARY: Denies any shortness of breath or wheezing. GENITOURINARY: No dysuria or hematuria. MUSCULOSKELETAL: Patient does report feeling weak and fatigued. SKIN: Denies any new rashes or lesions, jaundice or pallor. PSYCHIATRIC: Denies any depression or anxiety. NEUROLOGY: Denies headache, denies any new focal deficits. EARS: No tinnitus, discharge or new hearing loss, but he does use hearing assistive devices at baseline. NOSE: No discharge or congestion. EYES: No pain in eyes or change in vision. CONSTITUTIONAL: No recent weight loss. No fever, chills, night sweats. Past Medical History Past Medical History: Asthma, Diabetes Mellitus, GERD/Reflux, Hypertension, Pneumonia Additional Past Medical History / Comment(s): TIA in 2004, vein stripping bilateral legs, arthritis in most joints, History of Any Multi-Drug Resistant Organisms: None Reported Past Surgical History: Coronary Bypass/CABG Past Anesthesia/Blood Transfusion Reactions: No Reported Reaction Past Psychological History: No Psychological Hx Reported Smoking Status: Never smoker Past Alcohol Use History: None Reported Past Drug Use History: None Reported Additional History: Family history: Family history was reviewed with the patient in is noncontributory to current medical presentation. Medications and Allergies Home Medications Medication Instructions Recorded Confirmed Type Allopurinol [Zyloprim] 100 mg PO DAILY 10/05/18 10/05/18 History Ascorbic Acid [Vitamin C] 250 mg PO DAILY 10/05/18 10/05/18 History Aspirin 81 mg PO DAILY 10/05/18 10/05/18 History Diclofenac Sodium [Voltaren Gel] 2 gram TOPICAL QID 10/05/18 10/05/18 History Fluticasone Nasal [place] [Flonase 2 spr EA NOSTRIL DAILY 10/05/18 10/05/18 History Nasal [place]] Gabapentin [Neurontin] 100 mg PO BID 10/05/18 10/05/18 History Glimepiride [Amaryl] 2 mg PO AC-BRKFST 10/05/18 10/05/18 History Levothyroxine Sodium 25 mcg PO DAILY 10/05/18 10/05/18 History Lisinopril [Zestril] 5 mg PO DAILY 10/05/18 10/05/18 History Meclizine [Antivert] 25 mg PO TID PRN 10/05/18 10/05/18 History Metoprolol Tartrate [Lopressor] 25 mg PO BID 10/05/18 10/05/18 History Montelukast [Singulair] 10 mg PO HS 10/05/18 10/05/18 History Pancreatin 325mg 325 - 650 mg PO AC-TID 10/05/18 10/05/18 History Pioglitazone [Actos] 30 mg PO DAILY 10/05/18 10/05/18 History Pravastatin Sodium [Pravachol] 20 mg PO HS 10/05/18 10/05/18 History Tamsulosin [Flomax] 0.4 mg PO DAILY 10/05/18 10/05/18 History Allergies Allergy/AdvReac Type Severity Reaction Status Date / Time No Known Allergies Allergy Verified 10/05/18 19:05 Physical Exam Vitals: Vital Signs Temp Pulse Pulse Resp BP Pulse Ox 10/06/18 21:28 98.4 F 65 18 144/66 93 L 10/06/18 15:00 98.0 F 59 L 16 107/62 93 L 10/06/18 07:00 98.6 F 70 16 133/72 93 L 10/06/18 02:11 98.5 F 96 62 16 118/61 Intake and Output 10/06/18 10/06/18 10/06/18 06:59 14:59 22:59 Intake Total 400 Balance 400 Intake: Intake, IV Titration 400 Amount Sodium Chloride 0.9% 1, 400 000 ml @ 80 mls/hr IV . [id number] [facility] Rx#:[id number] Other: # Voids 2 Weight 83.461 kg On physical examination, patient appears comfortable in no apparent distress. HEAD: Normocephalic, atraumatic. EYES: No scleral icterus. No conjunctival injection. MOUTH: No lesions, tongue midline. NECK: Trachea midline, no gross abnormalities. CHEST: Clear to auscultation with no wheezing or rhonchi appreciated. HEART: Regular rate and rhythm. ABDOMEN: Soft, obese. Bowel sounds are positive. No organomegaly. No guarding or rigidity. EXTREMITIES: No pedal edema. SKIN: No rashes, no jaundice. NEUROLOGIC: Alert and oriented x3. No focal deficits. Results CBC & Chem 7: 10/06/18 09:08 10/06/18 09:08 Labs: Abnormal Lab Results - Last 24 Hours (Table) 10/06/18 10/06/18 10/06/18 Range/Units 09:08 09:08 09:08 RBC 3.30 L (4.30-5.90) m/uL Hgb 10.1 L (13.0-17.5) gm/dL Hct 30.2 L (39.0-53.0) % Chloride 108 H (98-107) mmol/L BUN 24 H (9-20) mg/dL Creatinine 1.31 H (0.66-1.25) mg/dL POC Glucose (mg/dL) (75-99) mg/dL Hemoglobin A1c (4.0-6.0) % Ferritin 2857.3 H (22.0-322.0) ng/mL Total Bilirubin 2.2 H (0.2-1.3) mg/dL AST 1630 H (17-59) U/L ALT 1292 H (21-72) U/L Alkaline Phosphatase 240 H (38-126) U/L Total Protein 5.7 L (6.3-8.2) g/dL Albumin 3.1 L (3.5-5.0) g/dL GOMEZ Screen POSITIVE H (NEGATIVE) SS-B Ab Interp POSITIVE H (NEGATIVE) 10/06/18 10/06/18 10/06/18 Range/Units 09:08 16:55 20:00 RBC (4.30-5.90) m/uL Hgb (13.0-17.5) gm/dL Hct (39.0-53.0) % Chloride (98-107) mmol/L BUN (9-20) mg/dL Creatinine (0.66-1.25) mg/dL POC Glucose (mg/dL) 52 L 182 H (75-99) mg/dL Hemoglobin A1c 7.2 H (4.0-6.0) % Ferritin (22.0-322.0) ng/mL Total Bilirubin (0.2-1.3) mg/dL AST (17-59) U/L ALT (21-72) U/L Alkaline Phosphatase (38-126) U/L Total Protein (6.3-8.2) g/dL Albumin (3.5-5.0) g/dL GOMEZ Screen (NEGATIVE) SS-B Ab Interp (NEGATIVE) CT scan - abdomen: report reviewed (CT showed a mildly distended gallbladder, prominent small bowel loops a liver with slightly coarsened echotexture and diverticulosis.) Assessment and Plan (1) Transaminitis Narrative/Plan: Transaminitis predominantly in a hepatocellular pattern which has improved markedly since presentation, this likely represents hypoperfusion in the setting of vomiting and diarrhea and likely dehydration. Viral hepatitis panel negative and ultrasound and CT negative for any acute biliary process. Differential also includes medication effect, virus or other etiology. Current Visit: Yes Status: Acute Code(s): R74.0 - NONSPEC ELEV OF LEVELS OF TRANSAMNS & LACTIC ACID DEHYDRGNSE SNOMED Code(s): 973934808 (2) Abdominal pain Current Visit: Yes Status: Acute Code(s): R10.9 - UNSPECIFIED ABDOMINAL PAIN SNOMED Code(s): 83177924 (3) Diarrhea Narrative/Plan: Acute complaints of loose stool with fecal studies pending. Improved today. Current Visit: Yes Status: Acute Code(s): R19.7 - DIARRHEA, UNSPECIFIED SNOMED Code(s): 26387528 Plan: Supportive care Okay for diet, started on liquids and advance as tolerated Monitor liver enzymes, can consider full serology if the values trend up, currently improving Ultrasound and CT reviewed Stool studies pending Bentyl added for abdominal pain Thank you for allowing us to participate in the care of this patient we will continue to follow
[2018-10-06] MEDS ORDERED: DICYCLOMINE 10 MG CAP PO PRN (23:15)
[2018-10-07] MEDS: VANCOMYCIN ORAL SOLUTION 250 MG/5 ML BOTTLE PO SCH ×2 (00:51→05:58)
[2018-10-07] MEDS: CHERRY FLAVOR 60 ML BOTTLE PO PRN ×2 (00:52→05:58)
[2018-10-07] MEDS: LEVOTHYROXINE 25 MCG TAB PO SCH (05:58)
[2018-10-07 06:47] LABS: Albumin 3.7 g/dL (3.5-5.0); Calcium 9.5 mg/dL (8.4-10.2); Potassium 3.6 mmol/L (3.5-5.1); Total Bilirubin 2.7 mg/dL (0.2-1.3); Total Protein 6.7 g/dL (6.3-8.2)
[2018-10-07 07:04] LABS: Basophils % (A) 0 %; Eosinophils # (A) 0.2 k/uL (0-0.7); Eosinophils % (A) 2 %; HCT 35.3 % (39.0-53.0); HGB 11.7 gm/dL (13.0-17.5); Lymphocytes % (A) 12 %; MCH 31.3 pg (25.0-35.0); MCHC 33.2 g/dL (31.0-37.0); MCV 94.2 fL (80.0-100.0); Mean Platelet Volume 9.1; Monocytes # (A) 0.4 k/uL (0-1.0); Monocytes % (A) 5 %; Neutrophils # (A) 6.7 k/uL (1.3-7.7); Neutrophils % (A) 80 %; Platelet Count 184 k/uL (150-450); RBC 3.75 m/uL (4.30-5.90); RDW 14.1 % (11.5-15.5); WBC 8.4 k/uL (3.8-10.6)
[2018-10-07 07:06] LABS: Glucose,Whole Blood 56 mg/dL (75-99)
[2018-10-07 07:27] LABS: Glucose,Whole Blood 62 mg/dL (75-99)
[2018-10-07 08:00] LABS: Glucose,Whole Blood 99 mg/dL (75-99)
[2018-10-07 08:12] LABS: Reticulocyte % 1.4 % (0.5-2.0)
[2018-10-07] MEDS: INSULIN ASPART 100 UNIT/ML 1 ML 10 ML VIAL SQ SCH (08:30)
[2018-10-07] MEDS: FLUTICASONE 50MCG/SPRAY NASAL 16GM EA NOSTRIL SCH (08:34)
[2018-10-07] MEDS: LISINOPRIL 5 MG TAB PO SCH (08:35)
[2018-10-07] MEDS: METOPROLOL TARTRATE 50 MG TAB PO SCH ×2 (08:35→22:19)
[2018-10-07] MEDS: ASPIRIN 81 MG PO SCH (08:35)
[2018-10-07] MEDS: GABAPENTIN 100 MG CAP PO SCH ×2 (08:35→22:18)
[2018-10-07] MEDS: ASCORBIC ACID 500 MG TAB PO SCH (08:36)
[2018-10-07] MEDS: PIOGLITAZONE 30 MG TAB PO SCH (08:36)
[2018-10-07] MEDS: TAMSULOSIN 0.4 MG CAP.ER.24H PO SCH (08:36)
[2018-10-07] MEDS: DICLOFENAC SODIUM GEL 100 GM TUBE TOPICAL SCH ×4 (08:43→22:19)
[2018-10-07 09:27] LABS: ANA Pattern Homogeneous; ANA Pattern 2 Nucleolar
[2018-10-07 11:18] LABS: Glucose,Whole Blood 131 mg/dL (75-99)
[2018-10-07 12:56] LABS: Iron Saturation 28.35 (15.00-50.00)
--- NOTE | 2018-10-07 12:56 | P.PN ---
Subjective Progress Note Date: 10/07/18 Principal diagnosis: Elevated liver enzymes Transaminases improving. Denies abdominal pain. Passing nonbloody formed bowel movement this morning. Afebrile. Objective - Vital Signs Vital signs: Vital Signs Temp 97.6 F 10/07/18 07:00 Pulse 76 10/07/18 07:00 Resp 18 10/07/18 07:00 BP 127/66 10/07/18 07:00 Pulse Ox 93 L 10/07/18 07:00 Intake & Output 10/06/18 10/07/18 10/07/18 18:59 06:59 18:59 Intake Total 1280 Balance 1280 Intake: Intake, IV Titration 1280 Amount Sodium Chloride 0.9% 1, 1280 000 ml @ 80 mls/hr IV . [id number] Rx#:[id number] Other: # Voids 2 2 - Exam General appearance: The patient is alert, oriented, in no acute distress. HET: Head is normocephalic and atraumatic. Pupils are equal and reactive. Oropharynx is clear without lesions. Neck: Supple without lymphadenopathy. Trachea midline. Heart: S1 S2. Regular rate and rhythm. Lungs: No crackles or wheezes are heard. Abdomen: Soft, nontender, nondistended with bowel sounds. No peritoneal signs. No palpable organomegaly or masses. Extremities: Normal skin color and turgor. No cyanosis, rash, ulceration, clubbing, or edema. Radial and pedal pulses are 2/4 bilaterally. Neurological: No focal deficits. Strength and sensation are grossly intact. - Labs CBC & Chem 7: 10/07/18 05:58 10/07/18 05:58 Labs: Abnormal Lab Results - Last 24 Hours (Table) 10/06/18 10/06/18 10/06/18 Range/Units 09:08 09:08 16:55 RBC (4.30-5.90) m/uL Hgb (13.0-17.5) gm/dL Hct (39.0-53.0) % Creatinine (0.66-1.25) mg/dL Glucose (74-99) mg/dL POC Glucose (mg/dL) 52 L (75-99) mg/dL Hemoglobin A1c 7.2 H (4.0-6.0) % Ferritin 2857.3 H (22.0-322.0) ng/mL Total Bilirubin (0.2-1.3) mg/dL AST (17-59) U/L ALT (21-72) U/L Alkaline Phosphatase (38-126) U/L GOMEZ Screen POSITIVE H (NEGATIVE) SS-B Ab Interp POSITIVE H (NEGATIVE) 10/06/18 10/07/18 10/07/18 Range/Units 20:00 05:58 05:58 RBC 3.75 L (4.30-5.90) m/uL Hgb 11.7 L (13.0-17.5) gm/dL Hct 35.3 L (39.0-53.0) % Creatinine 1.28 H (0.66-1.25) mg/dL Glucose 46 L* (74-99) mg/dL POC Glucose (mg/dL) 182 H (75-99) mg/dL Hemoglobin A1c (4.0-6.0) % Ferritin (22.0-322.0) ng/mL Total Bilirubin 2.7 H (0.2-1.3) mg/dL AST 889 H (17-59) U/L ALT 944 H (21-72) U/L Alkaline Phosphatase 289 H (38-126) U/L GOMEZ Screen (NEGATIVE) SS-B Ab Interp (NEGATIVE) 10/07/18 10/07/18 10/07/18 Range/Units 06:51 07:15 11:06 RBC (4.30-5.90) m/uL Hgb (13.0-17.5) gm/dL Hct (39.0-53.0) % Creatinine (0.66-1.25) mg/dL Glucose (74-99) mg/dL POC Glucose (mg/dL) 56 L 62 L 131 H (75-99) mg/dL Hemoglobin A1c (4.0-6.0) % Ferritin (22.0-322.0) ng/mL Total Bilirubin (0.2-1.3) mg/dL AST (17-59) U/L ALT (21-72) U/L Alkaline Phosphatase (38-126) U/L GOMEZ Screen (NEGATIVE) SS-B Ab Interp (NEGATIVE) Assessment and Plan (1) Transaminitis Current Visit: Yes Status: Acute Code(s): R74.0 - NONSPEC ELEV OF LEVELS OF TRANSAMNS & LACTIC ACID DEHYDRGNSE SNOMED Code(s): 056860045 (2) Abdominal pain Current Visit: Yes Status: Acute Code(s): R10.9 - UNSPECIFIED ABDOMINAL PAIN SNOMED Code(s): 71124184 (3) Diarrhea Current Visit: Yes Status: Acute Code(s): R19.7 - DIARRHEA, UNSPECIFIED SNOMED Code(s): 66048399 Plan: 1. Transaminases improving total bilirubin slightly elevated without abdominal pain passing formed nonbloody bowel movements. Patient is hungry requesting diet advancement afebrile. 2. Low fiber diet. Daily CMP. We'll continue to follow. Assessment and plan a care discussed with Dr. Rojas
[2018-10-07] MEDS ORDERED: LEVOFLOXACIN 250MG-D5W PMX 250 MG in DEXTROSE/WATER 1 50ML.BAG IVPB SCH (13:00)
--- NOTE | 2018-10-07 13:42 | P.PN ---
Subjective Progress Note Date: 10/07/18 88 years old male with past medical history of diabetes and hypertension comes in with increasing weakness nausea and vomiting. According to patient he was doing well until yesterday when he was having his breakfast followed by multiple episodes of vomiting. Patient also complained of some abdominal pain associated with diarrhea that was happening for the past 1 month. Patient has seen his primary care Dr. cyr for the following symptoms and was evaluated for lactose intolerance or food ALLERGIES. He was recently surgically treated for an abscess on his left shoulder for which patient was on antibiotics for 10 days. According to the patient's symptoms have worsened since he completed the antibiotics. Vitals evaluated suggested a temp of 98.1, blood pressure 99/62 respiratory rate 18. CBC suggested a hemoglobin of 11.6 no leukocytosis 8.6, creatinine 1.36, BUN 27. Further lab suggested a total bilirubin of 2.2, AST 4037, ALT 1963, alkaline phosphatase 301, CK 517, lipase 300 UA was negative for any infection does have some moderate blood. Renal ultrasound was obtained which was nondiagnostic as bowels were covering the liver. Some gallstones were visualized. Cortical renal thinning of medical renal disease seen without hydronephrosis. On evaluation patient feels better denies any nausea or vomiting this morning but does complain of abdominal pain. CT abdomen was ordered which is concerning for mild ileitis enteritis in the upper abdomen. Patient was nothing by mouth to this morning was switched to clear liquid diet. C. diff ordered. Hepatitis panel ordered. GOMEZ, smooth muscles, antimitochondrial antibody, ferritin, CEA ordered. 10/07: Patient has been seen in consultation by Dr. Rojas pills transaminitis as from hypoperfusion secondary to dehydration with recommendations to start clear liquids and advance as tolerated. Bentyl was added for abdominal pain. Repeat lab work reveals total bilirubin 2.7, liver function tests are improving with AST 889, ALT 944 and alkaline phosphatase 289. Blood sugar this morning was 46. GOMEZ is positive, homogenous. SS-B antibody positive. Hepatitis panel was negative. Smooth muscle antibody pending, C. diff and stool studies are uncollected as patient has had formed stools. Vancomycin will be discontinued. Patient denies having any abdominal pain. Review Of Systems: Constitutional: No fever, no chills, no night sweats. No weight change. No weakness, fatigue or lethargy. No daytime sleepiness. EENT: No headache. No blurred vision or double vision, no loss of vision. No loss of Hearing, no ringing in the ears, no dizziness. No nasal drainage or congestion. No epistaxis. No sore throat. Lungs: No shortness of breath, cough, no sputum production. No wheezing. Cardiovascular: No chest pain, no lower extremity edema. No palpitations. No paroxysmal nocturnal dyspnea. No orthopnea. No lightheadedness or dizziness. No syncopal episodes. Abdominal: No abdominal pain. No nausea, vomiting. No diarrhea. No constipation. No bloody or tarry stools.. No loss of appetite. Genitourinary: No dysuria, increased frequency, urgency. No urinary retention. Musculoskeletal: No myalgias. No muscle weakness, no gait dysfunction, no frequent falls. No back pain. No neck pain. Integumentary: No wounds, no lesions. No rash or pruritus. No unusual bruising. No change in hair or nails. Neurologic: No aphasia. No facial droop. No change in mentation. No head injury. No headache. No paralysis. No paresthesia. Psychiatric: No depression. No anxiety. No mood swings. Endocrine: No abnormal blood sugars. No weight change. No excessive sweating or thirst. No cold intolerance. Objective - Vital Signs Vital signs: Vital Signs Temp 97.6 F 10/07/18 07:00 Pulse 76 10/07/18 07:00 Resp 18 10/07/18 07:00 BP 127/66 10/07/18 07:00 Pulse Ox 93 L 10/07/18 07:00 Intake & Output 10/06/18 10/07/18 10/07/18 18:59 06:59 18:59 Intake Total 1280 Balance 1280 Intake: Intake, IV Titration 1280 Amount Sodium Chloride 0.9% 1, 1280 000 ml @ 80 mls/hr IV . [id number] Rx#:[id number] Other: # Voids 2 2 - Exam General appearance: cooperative, no acute distress, obese, patient sitting up in a chair and appears to be comfortable - EENT Eyes: anicteric sclerae, PERRLA, normal appearance ENT: Hard of hearing- Neck Neck: no lymphadenopathy, normal ROM, no other, no rigidity, no stridor, no thyromegaly - Respiratory Respiratory: bilateral: CTA, negative: diminished, dullness, rales, rhonchi - Cardiovascular Rhythm: regular Heart sounds: normal: S1, S2 Abnormal Heart Sounds: no systolic murmur, no diastolic murmur, no rub, no S3 Gallop, no S4 Gallop, no click, no other - Gastrointestinal General gastrointestinal: Diffuse abdominal tenderness, soft to palpate no distention bowel sounds present - Integumentary Integumentary: no rash - Neurologic Neurologic: CNII-XII intact - Musculoskeletal Musculoskeletal: gait normal, strength equal bilaterally - Psychiatric Psychiatric: A&O x's 3, appropriate affect - Labs CBC & Chem 7: 10/07/18 05:58 10/07/18 05:58 Labs: Abnormal Lab Results - Last 24 Hours (Table) 10/06/18 10/06/18 10/06/18 Range/Units 09:08 09:08 09:08 RBC (4.30-5.90) m/uL Hgb (13.0-17.5) gm/dL Hct (39.0-53.0) % Creatinine (0.66-1.25) mg/dL Glucose (74-99) mg/dL POC Glucose (mg/dL) (75-99) mg/dL Hemoglobin A1c 7.2 H (4.0-6.0) % Ferritin 2857.3 H (22.0-322.0) ng/mL Total Bilirubin (0.2-1.3) mg/dL AST 1630 H (17-59) U/L ALT (21-72) U/L Alkaline Phosphatase (38-126) U/L GOMEZ Screen POSITIVE H (NEGATIVE) SS-B Ab Interp POSITIVE H (NEGATIVE) 10/06/18 10/06/18 10/07/18 Range/Units 16:55 20:00 05:58 RBC 3.75 L (4.30-5.90) m/uL Hgb 11.7 L (13.0-17.5) gm/dL Hct 35.3 L (39.0-53.0) % Creatinine (0.66-1.25) mg/dL Glucose (74-99) mg/dL POC Glucose (mg/dL) 52 L 182 H (75-99) mg/dL Hemoglobin A1c (4.0-6.0) % Ferritin (22.0-322.0) ng/mL Total Bilirubin (0.2-1.3) mg/dL AST (17-59) U/L ALT (21-72) U/L Alkaline Phosphatase (38-126) U/L GOMEZ Screen (NEGATIVE) SS-B Ab Interp (NEGATIVE) 10/07/18 10/07/18 10/07/18 Range/Units 05:58 06:51 07:15 RBC (4.30-5.90) m/uL Hgb (13.0-17.5) gm/dL Hct (39.0-53.0) % Creatinine 1.28 H (0.66-1.25) mg/dL Glucose 46 L* (74-99) mg/dL POC Glucose (mg/dL) 56 L 62 L (75-99) mg/dL Hemoglobin A1c (4.0-6.0) % Ferritin (22.0-322.0) ng/mL Total Bilirubin 2.7 H (0.2-1.3) mg/dL AST 889 H (17-59) U/L ALT 944 H (21-72) U/L Alkaline Phosphatase 289 H (38-126) U/L GOMEZ Screen (NEGATIVE) SS-B Ab Interp (NEGATIVE) Assessment and Plan Plan: #1 acute colitis/ileitis likely secondary to a C. diff. Other possibility includes viral gastroenteritis, acute hepatitis. GI consult placed. Patient initiated on levofloxacin and oral vancomycin. C. diff pending. Fecal occult pending. Stool culture pending start CT abdomen concerning for ileitis/ enteritis. With heterogenous liver concerning for acute hepatitis versus diffuse hepatocellular disease. No evidence of acute cholangitis #2 acute transaminitis likely secondary to hypoperfusion though acute hepatitis cannot be ruled out. Hepatitis panel as above Autoimmune workup pending. Hematocrit mitosis pending. CEA ordered. GI consult and recommendation pending #3 acute anemia. No baseline hemoglobin present. Patient has a drop of hemoglobin from 11.6-10.1 this morning. Fecal occult ordered. I iron panel ordered #4 hypertension continue 5 mg by mouth daily, metoprolol 25 mg twice a day #5 type 2 diabetes and high Hold Demerol. Continue Actos 30 mg by mouth daily #6 BPH continue Flomax 0.4 mg by mouth daily CODE STATUS full code Discharge plan: Return home tomorrow Impression and plan of care have been directed as dictated by the signing physician. Therese Francois nurse practitioner acting as scribe for signing physician.
[2018-10-07 17:31] LABS: Glucose,Whole Blood 71 mg/dL (75-99)
[2018-10-07] MEDS: SODIUM CHLORIDE 0.9% 1,000 ML IV SCH (17:49)
[2018-10-07 20:53] LABS: Glucose,Whole Blood 115 mg/dL (75-99)
[2018-10-08] MEDS: SODIUM CHLORIDE 0.9% 1,000 ML IV SCH (05:02)
[2018-10-08] MEDS: LEVOTHYROXINE 25 MCG TAB PO SCH (06:19)
[2018-10-08 07:09] LABS: Glucose,Whole Blood 92 mg/dL (75-99)
[2018-10-08 07:46] VITALS: BP 162/69; PULSE 60; RESP 14; TEMP 99.3
[2018-10-08 08:06] LABS: Basophils % (A) 0 %; Eosinophils # (A) 0.4 k/uL (0-0.7); Eosinophils % (A) 7 %; HCT 30.8 % (39.0-53.0); HGB 10.3 gm/dL (13.0-17.5); Lymphocytes # (A) 0.9 k/uL (1.0-4.8); Lymphocytes % (A) 14 %; MCH 30.9 pg (25.0-35.0); MCHC 33.3 g/dL (31.0-37.0); MCV 92.7 fL (80.0-100.0); Mean Platelet Volume 8.6; Monocytes # (A) 0.4 k/uL (0-1.0); Monocytes % (A) 7 %; Neutrophils # (A) 4.2 k/uL (1.3-7.7); Neutrophils % (A) 70 %; Platelet Count 159 k/uL (150-450); RBC 3.32 m/uL (4.30-5.90); RDW 14.2 % (11.5-15.5)
[2018-10-08 08:17] LABS: Albumin 2.7 g/dL (3.5-5.0); Potassium 4.1 mmol/L (3.5-5.1); Total Protein 5.4 g/dL (6.3-8.2)
[2018-10-08] MEDS: METOPROLOL TARTRATE 50 MG TAB PO SCH (09:07)
[2018-10-08] MEDS: TAMSULOSIN 0.4 MG CAP.ER.24H PO SCH (09:07)
[2018-10-08] MEDS: ASCORBIC ACID 500 MG TAB PO SCH (09:07)
[2018-10-08] MEDS: DICLOFENAC SODIUM GEL 100 GM TUBE TOPICAL SCH (09:08)
[2018-10-08] MEDS: GABAPENTIN 100 MG CAP PO SCH (09:08)
[2018-10-08] MEDS: FLUTICASONE 50MCG/SPRAY NASAL 16GM EA NOSTRIL SCH (09:08)
[2018-10-08] MEDS: LISINOPRIL 5 MG TAB PO SCH (09:08)
[2018-10-08] MEDS: ASPIRIN 81 MG PO SCH (09:08)
--- NOTE | 2018-10-08 10:30 | P.PN ---
Subjective Progress Note Date: 10/08/18 Principal diagnosis: Elevated liver enzymes Transaminases improving. Denies abdominal pain. Tolerating advance diet. Afebrile. Total bilirubin 1.0. AST 265. ALT 492. AP 235. Objective - Vital Signs Vital signs: Vital Signs Temp 99.3 F 10/08/18 07:45 Pulse 60 10/08/18 07:45 Resp 14 10/08/18 09:27 BP 162/69 10/08/18 07:45 Pulse Ox 95 10/08/18 07:45 Intake & Output 10/07/18 10/08/18 10/08/18 18:59 06:59 18:59 Intake Total 643 1390 240 Balance 643 1390 240 Weight 83.461 kg Intake: Intake, IV Titration 640 800 Amount Sodium Chloride 0.9% 1, 640 800 000 ml @ 80 mls/hr IV . [id number] [id number] Rx#:[id number] Oral 590 240 Other 3 Other: Voiding Method Toilet Toilet # Voids 3 1 - Exam General appearance: The patient is alert, oriented, in no acute distress. HET: Head is normocephalic and atraumatic. Pupils are equal and reactive. Oropharynx is clear without lesions. Neck: Supple without lymphadenopathy. Trachea midline. Heart: S1 S2. Regular rate and rhythm. Lungs: No crackles or wheezes are heard. Abdomen: Soft, nontender, nondistended with bowel sounds. No peritoneal signs. No palpable organomegaly or masses. Extremities: Normal skin color and turgor. No cyanosis, rash, ulceration, clubbing, or edema. Radial and pedal pulses are 2/4 bilaterally. Neurological: No focal deficits. Strength and sensation are grossly intact. - Labs CBC & Chem 7: 10/08/18 07:45 10/08/18 07:45 Labs: Abnormal Lab Results - Last 24 Hours (Table) 10/07/18 10/07/18 10/07/18 Range/Units 11:06 17:20 20:42 RBC (4.30-5.90) m/uL Hgb (13.0-17.5) gm/dL Hct (39.0-53.0) % Lymphocytes # (1.0-4.8) k/uL Chloride (98-107) mmol/L POC Glucose (mg/dL) 131 H 71 L 115 H (75-99) mg/dL AST (17-59) U/L ALT (21-72) U/L Alkaline Phosphatase (38-126) U/L Total Protein (6.3-8.2) g/dL Albumin (3.5-5.0) g/dL 10/08/18 10/08/18 Range/Units 07:45 07:45 RBC 3.32 L (4.30-5.90) m/uL Hgb 10.3 L (13.0-17.5) gm/dL Hct 30.8 L (39.0-53.0) % Lymphocytes # 0.9 L (1.0-4.8) k/uL Chloride 109 H (98-107) mmol/L POC Glucose (mg/dL) (75-99) mg/dL AST 265 H (17-59) U/L ALT 492 H (21-72) U/L Alkaline Phosphatase 235 H (38-126) U/L Total Protein 5.4 L (6.3-8.2) g/dL Albumin 2.7 L (3.5-5.0) g/dL Assessment and Plan (1) Transaminitis Narrative/Plan: Improved Current Visit: Yes Status: Acute Code(s): R74.0 - NONSPEC ELEV OF LEVELS OF TRANSAMNS & LACTIC ACID DEHYDRGNSE SNOMED Code(s): 613471186 (2) Abdominal pain Current Visit: Yes Status: Acute Code(s): R10.9 - UNSPECIFIED ABDOMINAL PAIN SNOMED Code(s): 31107645 (3) Diarrhea Current Visit: Yes Status: Acute Code(s): R19.7 - DIARRHEA, UNSPECIFIED SNOMED Code(s): 71203031 Plan: 1. Transaminases improved. Agreeable for discharge. Follow with primary as advised. Assessment and plan a care discussed with Dr. Rojas
--- NOTE | 2018-10-08 12:09 | P.DS ---
Providers Date of admission: 10/05/18 22:18 Expected date of discharge: 10/08/18 Attending physician: Iván Reilly MD Consults: 10/05/18 22:04 Consult Physician Routine Consulting Provider: Mralo Atkins Consult Reason/Comments: Transaminitis; Abdominal Pain Do you want consulting provider notified?: Yes Primary care physician: Guzman Fontaine [facility] Course: 88 years old male with past medical history of diabetes and hypertension comes in with increasing weakness nausea and vomiting. According to patient he was doing well until yesterday when he was having his breakfast followed by multiple episodes of vomiting. Patient also complained of some abdominal pain associated with diarrhea that was happening for the past 1 month. Patient has seen his primary care Dr. cyr for the following symptoms and was evaluated for lactose intolerance or food ALLERGIES. He was recently surgically treated for an abscess on his left shoulder for which patient was on antibiotics for 10 days. According to the patient's symptoms have worsened since he completed the antibiotics. Vitals evaluated suggested a temp of 98.1, blood pressure 99/62 respiratory rate 18. CBC suggested a hemoglobin of 11.6 no leukocytosis 8.6, creatinine 1.36, BUN 27. Further lab suggested a total bilirubin of 2.2, AST 4037, ALT 1963, alkaline phosphatase 301, CK 517, lipase 300 UA was negative for any infection does have some moderate blood. Renal ultrasound was obtained which was nondiagnostic as bowels were covering the liver. Some gallstones were visualized. Cortical renal thinning of medical renal disease seen without hydronephrosis. On evaluation patient feels better denies any nausea or vomiting this morning but does complain of abdominal pain. CT abdomen was ordered which is concerning for mild ileitis enteritis in the upper abdomen. Patient was nothing by mouth to this morning was switched to clear liquid diet. C. diff ordered. Hepatitis panel ordered. GOMEZ, smooth muscles, antimitochondrial antibody, ferritin, CEA ordered. 10/07: Patient has been seen in consultation by Dr. Rojas pills transaminitis as from hypoperfusion secondary to dehydration with recommendations to start clear liquids and advance as tolerated. Bentyl was added for abdominal pain. Repeat lab work reveals total bilirubin 2.7, liver function tests are improving with AST 889, ALT 944 and alkaline phosphatase 289. Blood sugar this morning was 46. GOMEZ is positive, homogenous. SS-B antibody positive. Hepatitis panel was negative. Smooth muscle antibody pending, C. diff and stool studies are uncollected as patient has had formed stools. Vancomycin will be discontinued. Patient denies having any abdominal pain. 10/08: Liver function tests are improving with total bilirubin of 1, AST 265, ALT 492 and alkaline phosphatase 235. Patient is tolerating diet and he denies having any vomiting or diarrhea. He states he has had occasional nausea. GI has recommended a low fiber diet. We will also add and to avoid milk products and fried foods. The patient will be discharged home today in stable condition. Discharge diagnoses: #1 acute ileitis secondary to gastroenteritis #2 acute transaminitis likely secondary to hypoperfusion #3 anemia, possible chronic disease. No baseline available. #4 hypertension continue 5 mg by mouth daily, metoprolol 25 mg twice a day #5 type 2 diabetes and high Hold Demerol. Continue Actos 30 mg by mouth daily #6 BPH continue Flomax 0.4 mg by mouth daily CODE STATUS full code Discharge plan: Return home tomorrow Impression and plan of care have been directed as dictated by the signing physician. Therese Francois nurse practitioner acting as scribe for signing physician. Patient Condition at Discharge: Good Plan - Discharge Summary Discharge Rx Participant: Yes New Discharge Prescriptions: New Dicyclomine [Bentyl] 10 mg PO QID PRN #120 cap PRN Reason: Dyspepsia Levofloxacin [Levaquin] 250 mg PO Q24H #5 tab Continue Pioglitazone [Actos] 30 mg PO DAILY Montelukast [Singulair] 10 mg PO HS Lisinopril [Zestril] 5 mg PO DAILY Gabapentin [Neurontin] 100 mg PO BID Metoprolol Tartrate [Lopressor] 25 mg PO BID Levothyroxine Sodium 25 mcg PO DAILY Allopurinol [Zyloprim] 100 mg PO DAILY Tamsulosin [Flomax] 0.4 mg PO DAILY Aspirin 81 mg PO DAILY Ascorbic Acid [Vitamin C] 250 mg PO DAILY Pancreatin 325mg 325 - 650 mg PO AC-TID Meclizine [Antivert] 25 mg PO TID PRN PRN Reason: Vertigo Fluticasone Nasal [place] [Flonase Nasal [place]] 2 spr EA NOSTRIL DAILY Diclofenac Sodium [Voltaren Gel] 2 gram TOPICAL QID Discontinued Glimepiride [Amaryl] 2 mg PO AC-BRKFST Pravastatin Sodium [Pravachol] 20 mg PO HS Discharge Medication List Allopurinol [Zyloprim] 100 mg PO DAILY 10/05/18 [History] Ascorbic Acid [Vitamin C] 250 mg PO DAILY 10/05/18 [History] Aspirin 81 mg PO DAILY 10/05/18 [History] Diclofenac Sodium [Voltaren Gel] 2 gram TOPICAL QID 10/05/18 [History] Fluticasone Nasal [place] [Flonase Nasal [place]] 2 spr EA NOSTRIL DAILY 10/05/18 [ History] Gabapentin [Neurontin] 100 mg PO BID 10/05/18 [History] Levothyroxine Sodium 25 mcg PO DAILY 10/05/18 [History] Lisinopril [Zestril] 5 mg PO DAILY 10/05/18 [History] Meclizine [Antivert] 25 mg PO TID PRN 10/05/18 [History] Metoprolol Tartrate [Lopressor] 25 mg PO BID 10/05/18 [History] Montelukast [Singulair] 10 mg PO HS 10/05/18 [History] Pancreatin 325mg 325 - 650 mg PO AC-TID 10/05/18 [History] Pioglitazone [Actos] 30 mg PO DAILY 10/05/18 [History] Tamsulosin [Flomax] 0.4 mg PO DAILY 10/05/18 [History] Dicyclomine [Bentyl] 10 mg PO QID PRN #120 cap 10/08/18 [Rx] Levofloxacin [Levaquin] 250 mg PO Q24H #5 tab 10/08/18 [Rx] Follow up Appointment(s)/Referral(s): Guzman Olvera MD [Primary Care Provider] - 10/16/18 8:45 am Chuck Rojas MD [STAFF PHYSICIAN] - 10/21/18 10:30 am Patient Instructions/Handouts: Dicyclomine (By mouth), Levofloxacin (By mouth) , Dehydration (DC) Activity/Diet/Wound Care/Special Instructions: Low fiber, no dairy, avoid fried foods Discharge Disposition: HOME SELF-CARE
[2018-10-08] MEDS ORDERED: LEVOFLOXACIN 250 MG TAB PO SCH (13:00)
== END 2018-10-08 11:24 | disposition home or self-care (01) | DRG 392 ==
LOC: EC 17:24 → 4SSUR 22:18
PROVIDERS: ADMIT Internal Medicine; ATTEND Internal Medicine
DX: A08.4 Viral intestinal infection, unspecified (principal); B17.9 Acute viral hepatitis, unspecified; D64.9 Anemia, unspecified; E11.9 Type 2 diabetes mellitus without complications; E86.0 Dehydration; I10 Essential (primary) hypertension; J45.909 Unspecified asthma, uncomplicated; K21.9 Gastro-esophageal reflux disease without esophagitis; K57.90 Diverticulosis of intestine, part unspecified, without perforation or abscess without bleeding; K80.20 Calculus of gallbladder without cholecystitis without obstruction; K82.8 Other specified diseases of gallbladder; N28.9 Disorder of kidney and ureter, unspecified; N40.0 Benign prostatic hyperplasia without lower urinary tract symptoms; Z79.82 Long term (current) use of aspirin; Z79.84 Long term (current) use of oral hypoglycemic drugs; Z79.899 Other long term (current) drug therapy; Z86.73 Personal history of transient ischemic attack (TIA), and cerebral infarction without residual deficits; Z95.1 Presence of aortocoronary bypass graft
CPT/HCPCS: 36415; 71046; 74160; 76705; 80053; 80074; 81001; 82103; 82150; 82550; 82553; 82728; 83036; 83516; 83540; 83550; 83690; 84484; 85025; 85045; 85610; 85730; 86038; 86039; 86235; 86304; 93005; 96360; 99285

== ENCOUNTER → 2018-11-05 | Outpatient (CLI) | payer MEDICARE, OTHER ==
[2018-11-06 03:04] LABS: Albumin 4.4 g/dL (3.80-4.90); Bilirubin, Conjugated 0.3 mg/dL (0.20-0.40); Bilirubin,Unconjugated 0.5 mg/dL; Globulin 2.2 g/dL (1.6-3.3); Total Bilirubin 0.8 mg/dL (0.3-1.2); Total Protein 6.6 g/dL (6.2-8.2)
== END | disposition home or self-care (01) ==
LOC: LABWHC1 13:54
PROVIDERS: ATTEND Internal Medicine
DX: R74.8 Abnormal levels of other serum enzymes (principal)
CPT/HCPCS: 36415; 80076

== ENCOUNTER → 2018-12-22 | Outpatient (CLI) | payer MEDICARE, OTHER | END | disposition home or self-care (01) | LOC: LABWHC1 08:51 | PROVIDERS: ATTEND Family Medicine | DX: E11.9 Type 2 diabetes mellitus without complications (principal) | CPT/HCPCS: 36415; 83036; 86140 ==

== ENCOUNTER 2019-10-20 11:13 | Inpatient (IN) | payer MEDICARE, OTHER ==
[2019-10-20] MEDS ORDERED: SODIUM CHLORIDE 0.9% 500 ML 500 ML IV STA (11:31)
--- NOTE | 2019-10-20 12:35 | ED ---
General Adult HPI - General Chief complaint: Abdominal Pain Stated complaint: Stomach/back pain Time Seen by Provider: 10/20/19 11:22 Source: patient, RN notes reviewed, old records reviewed Mode of arrival: ambulatory Limitations: no limitations - History of Present Illness Initial comments: 89-year-old male patient passed history of asthma, type 2 diabetes, CABG, presents to ED for cheif complaint of one week of abdominal, flank pain. Patient also reports diarrhea. Reports nausea without emesis. Reports that the pain waxes and wanes. Describes the pain in his right lower quadrant as well as his right posterior axillary line flank region. Denies any chest pain or shortness of breath. Denies any previous surgeries on abdomen. Denies any othe r complaints at this time. Systemic: Pt denies fatigue, fever/chills, rash. Pt denies weakness, night sweats, weight loss. Neuro: Pt denies headache, visual disturbances, syncope or pre-syncope. HEENT: Pt denies ocular discharge or irritation, otalgia, rhinorrhea, pharyngitis or notable lymphadenopathy. Cardiopulmonary: Pt denies chest pain, SOB, heart palpitations, dyspnea on exertion. Abdominal/GI: Pt denies emesis. : Pt denies dysuria, burning w/ urination, frequency/urgency. Denies new onset urinary or bowel incontinence. MSK: Pt denies myalgia, loss of strength or function in extremities. Neuro: Pt denies new onset weakness, paresthesias. - Related Data Home Medications Medication Instructions Recorded Confirmed Allopurinol [Zyloprim] 100 mg PO DAILY 10/05/18 10/05/18 Ascorbic Acid [Vitamin C] 250 mg PO DAILY 10/05/18 10/05/18 Aspirin 81 mg PO DAILY 10/05/18 10/05/18 Diclofenac Sodium [Voltaren Gel] 2 gram TOPICAL QID 10/05/18 10/05/18 Fluticasone Nasal [place] [Flonase 2 spr EA NOSTRIL DAILY 10/05/18 10/05/18 Nasal [place]] Gabapentin [Neurontin] 100 mg PO BID 10/05/18 10/05/18 Levothyroxine Sodium 25 mcg PO DAILY 10/05/18 10/05/18 Lisinopril [Zestril] 5 mg PO DAILY 10/05/18 10/05/18 Meclizine [Antivert] 25 mg PO TID PRN 10/05/18 10/05/18 Metoprolol Tartrate [Lopressor] 25 mg PO BID 10/05/18 10/05/18 Montelukast [Singulair] 10 mg PO HS 10/05/18 10/05/18 Pancreatin 325mg 325 - 650 mg PO AC-TID 10/05/18 10/05/18 Pioglitazone [Actos] 30 mg PO DAILY 10/05/18 10/05/18 Tamsulosin [Flomax] 0.4 mg PO DAILY 10/05/18 10/05/18 Previous Rx's Medication Instructions Recorded Dicyclomine [Bentyl] 10 mg PO QID PRN #120 cap 10/08/18 Levofloxacin [Levaquin] 250 mg PO Q24H #5 tab 10/08/18 Allergies Allergy/AdvReac Type Severity Reaction Status Date / Time No Known Allergies Allergy Verified 10/20/19 11:19 Review of Systems ROS Statement: Those systems with pertinent positive or pertinent negative responses have been documented in the HPI. ROS Other: All systems not noted in ROS Statement are negative. Past Medical History Past Medical History: Asthma, CVA/TIA, Diabetes Mellitus, GERD/Reflux, Hypertension, Osteoarthritis (OA) Additional Past Medical History / Comment(s): TIA in 2004 History of Any Multi-Drug Resistant Organisms: None Reported Past Surgical History: Coronary Bypass/CABG Additional Past Surgical History / Comment(s): vein stripping Past Anesthesia/Blood Transfusion Reactions: No Reported Reaction Past Psychological History: No Psychological Hx Reported Smoking Status: Never smoker Past Alcohol Use History: None Reported Past Drug Use History: None Reported General Exam - General Exam Comments Initial Comments: Constitutional: NAD, AOX3, Pt has pleasant affect. HEENT: NC/AT, trachea midline, neck supple, no lymphadenopathy. Posterior pharynx non erythematous, without exudates. External ears appear normal, without discharge. Mucous membranes moist. Eyes PERRLA, EOM intact. There is no scleral icterus. No pallor noted. Cardiopulmonary: RRR, no murmurs, rubs or gallops, no JVD noted. Lungs CTAB in anterior and posterior [place]. No peripheral edema. Abdominal exam: Abdomen soft and non-distended. Abdomen nontender to palpation in right lower quadrant. No other areas of abdominal tenderness. Right posterior axillary line mildly tender. No skin changes.. Bowel sounds active in LLQ. No hepatosplenomegaly. No ecchymosis Neuro: CN II-XII grossly intact. No nuchal rigidity. No raccon eyes, no yang sign, no hemotympanum. No cervical spinal tenderness. MSK: No posterior calf tenderness bilaterally, homans sign negative bilaterally. Posterior tibialis and radial pulse +2 bilaterally. Sensation intact in upper and lower extremities. Full active ROM in upper and lower extremities, 5/5 stregnth. Limitations: no limitations Course Vital Signs 10/20/19 11:14 Temperature 97.8 F Pulse Rate 79 Respiratory 18 Rate Blood Pressure 138/72 O2 Sat by Pulse 98 Oximetry Medical Decision Making - Medical Decision Making 89-year-old male patient passed history of asthma, type 2 diabetes, CABG, presents to ED for cheif complaint of one week of abdominal, flank pain. Patient also reports diarrhea. Reports nausea without emesis. Reports that the pain waxes and wanes. Describes the pain in his right lower quadrant as well as his right posterior axillary line flank region. Denies any chest pain or shortness of breath. Denies any previous surgeries on abdomen. Denies any other complaints at this time. Patient vital signs stable, afebrile. Physical exam displayed mild right quadrant tenderness. CBC CMP noncompressive. Creatinine stable. UA negative. Lipase negative. EKG nonischemic. CT abdomen and pelvis displayed acute diverticulitis small amount of free air. Cardiomegaly. Patient she had an IV antibiotics will be admitted with surgical consultation. Case discussed with Dr. Figueredo. - Lab Data Result diagrams: 10/20/19 12:30 10/20/19 12:30 Lab Results 10/20/19 10/20/19 10/20/19 Range/Units 12:30 12:30 12:30 WBC 8.0 (3.8-10.6) k/uL RBC 3.45 L (4.30-5.90) m/uL Hgb 10.9 L (13.0-17.5) gm/dL Hct 32.4 L (39.0-53.0) % MCV 93.9 (80.0-100.0) fL MCH 31.7 (25.0-35.0) pg MCHC 33.8 (31.0-37.0) g/dL RDW 13.5 (11.5-15.5) % Plt Count 156 (150-450) k/uL Neutrophils % 76 % Lymphocytes % 12 % Monocytes % 6 % Eosinophils % 3 % Basophils % 0 % Neutrophils # 6.1 (1.3-7.7) k/uL Lymphocytes # 1.0 (1.0-4.8) k/uL Monocytes # 0.5 (0-1.0) k/uL Eosinophils # 0.3 (0-0.7) k/uL Basophils # 0.0 (0-0.2) k/uL PT 10.6 (9.0-12.0) sec INR 1.0 (<1.2) APTT 26.4 (22.0-30.0) sec Sodium 138 (137-145) mmol/L Potassium 4.1 (3.5-5.1) mmol/L Chloride 104 (98-107) mmol/L Carbon Dioxide 25 (22-30) mmol/L Anion Gap 9 mmol/L BUN 27 H (9-20) mg/dL Creatinine 1.29 H (0.66-1.25) mg/dL Est GFR (CKD-EPI)AfAm 57 (>60 ml/min/1.73 sqM) Est GFR (CKD-EPI)NonAf 49 (>60 ml/min/1.73 sqM) Glucose 144 H (74-99) mg/dL Calcium 9.3 (8.4-10.2) mg/dL Total Bilirubin 1.3 (0.2-1.3) mg/dL AST 30 (17-59) U/L ALT 26 (21-72) U/L Alkaline Phosphatase 76 (38-126) U/L Troponin I (0.000-0.034) ng/mL Total Protein 6.2 L (6.3-8.2) g/dL Albumin 3.4 L (3.5-5.0) g/dL Lipase 53 (23-300) U/L Urine Color Urine Appearance (Clear) Urine pH (5.0-8.0) Ur Specific [place] (1.001-1.035) Urine Protein (Negative) Urine Glucose (UA) (Negative) Urine Ketones (Negative) Urine Blood (Negative) Urine Nitrite (Negative) Urine Bilirubin (Negative) Urine Urobilinogen (<2.0) mg/dL Ur Leukocyte Esterase (Negative) Urine RBC (0-5) /hpf Urine WBC (0-5) /hpf Ur Squamous Epith Cells (0-4) /hpf Urine Mucus (None) /hpf 10/20/19 10/20/19 Range/Units 12:30 13:58 WBC (3.8-10.6) k/uL RBC (4.30-5.90) m/uL Hgb (13.0-17.5) gm/dL Hct (39.0-53.0) % MCV (80.0-100.0) fL MCH (25.0-35.0) pg MCHC (31.0-37.0) g/dL RDW (11.5-15.5) % Plt Count (150-450) k/uL Neutrophils % % Lymphocytes % % Monocytes % % Eosinophils % % Basophils % % Neutrophils # (1.3-7.7) k/uL Lymphocytes # (1.0-4.8) k/uL Monocytes # (0-1.0) k/uL Eosinophils # (0-0.7) k/uL Basophils # (0-0.2) k/uL PT (9.0-12.0) sec INR (<1.2) APTT (22.0-30.0) sec Sodium (137-145) mmol/L Potassium (3.5-5.1) mmol/L Chloride (98-107) mmol/L Carbon Dioxide (22-30) mmol/L Anion Gap mmol/L BUN (9-20) mg/dL Creatinine (0.66-1.25) mg/dL Est GFR (CKD-EPI)AfAm (>60 ml/min/1.73 sqM) Est GFR (CKD-EPI)NonAf (>60 ml/min/1.73 sqM) Glucose (74-99) mg/dL Calcium (8.4-10.2) mg/dL Total Bilirubin (0.2-1.3) mg/dL AST (17-59) U/L ALT (21-72) U/L Alkaline Phosphatase (38-126) U/L Troponin I <0.012 (0.000-0.034) ng/mL Total Protein (6.3-8.2) g/dL Albumin (3.5-5.0) g/dL Lipase (23-300) U/L Urine Color Yellow Urine Appearance Clear (Clear) Urine pH 5.5 (5.0-8.0) Ur Specific [place] 1.015 (1.001-1.035) Urine Protein 1+ H (Negative) Urine Glucose (UA) Negative (Negative) Urine Ketones Negative (Negative) Urine Blood Negative (Negative) Urine Nitrite Negative (Negative) Urine Bilirubin Negative (Negative) Urine Urobilinogen <2.0 (<2.0) mg/dL Ur Leukocyte Esterase Negative (Negative) Urine RBC <1 (0-5) /hpf Urine WBC <1 (0-5) /hpf Ur Squamous Epith Cells <1 (0-4) /hpf Urine Mucus Rare H (None) /hpf - EKG Data -: EKG Interpreted by Me (and Dr. Figueredo ) EKG Comments: Ventricular rate 64,. Full 236, QRS 86, QT/QTC 384/396. Sinus rhythm with first-degree AV block. Abnormal EKG. No significant change from prior, no concern for acute ischemia. Disposition Clinical Impression: Diverticulitis of colon with perforation Disposition: ADMITTED IP TO THIS HOSP Condition: Stable Is patient prescribed a controlled substance at d/c from ED?: No Referrals: Guzman Olvera MD [Primary Care Provider] - 1-2 days
[2019-10-20 12:43] LABS: Basophils % (A) 0 %; Eosinophils # (A) 0.3 k/uL (0-0.7); Eosinophils % (A) 3 %; HCT 32.4 % (39.0-53.0); HGB 10.9 gm/dL (13.0-17.5); Lymphocytes % (A) 12 %; MCH 31.7 pg (25.0-35.0); MCHC 33.8 g/dL (31.0-37.0); MCV 93.9 fL (80.0-100.0); Mean Platelet Volume 9.8; Monocytes # (A) 0.5 k/uL (0-1.0); Monocytes % (A) 6 %; Neutrophils # (A) 6.1 k/uL (1.3-7.7); Neutrophils % (A) 76 %; Platelet Count 156 k/uL (150-450); RBC 3.45 m/uL (4.30-5.90); RDW 13.5 % (11.5-15.5)
[2019-10-20 12:53] LABS: Partial Thromboplastin Time 26.4 sec (22.0-30.0); Prothrombin Time 10.6 sec (9.0-12.0)
[2019-10-20 12:57] LABS: Albumin 3.4 g/dL (3.5-5.0); Calcium 9.3 mg/dL (8.4-10.2); Potassium 4.1 mmol/L (3.5-5.1); Total Bilirubin 1.3 mg/dL (0.2-1.3); Total Protein 6.2 g/dL (6.3-8.2)
[2019-10-20 14:19] LABS: Appearance,Urine Clear (Clear); Bilirubin,Urine Negative (Negative); Blood,Urine Negative (Negative); Color,Urine Yellow; Glucose,Urine (UA) Negative (Negative); Ketones,Urine Negative (Negative); Leukocyte Esterase,Urine Negative (Negative); Mucus,Urine Rare /hpf; Nitrite,Urine Negative (Negative); PH, Urine 5.5 (5.0-8.0); Protein,Urine 1+ (Negative); RBC,Urine <1 /hpf (0-5); Specific Gravity,Urine 1.015 (1.001-1.035); Squamous Epithelial Cell,Urine <1 /hpf (0-4); Urobilinogen,Urine <2.0 mg/dL (<2.0); WBC,Urine <1 /hpf (0-5)
[2019-10-20] MEDS ORDERED: PIPERACILLIN-TAZOBACTAM 3.375 GM in SODIUM CHLORIDE 0.9% 100 ML IVPB STA (14:23)
--- NOTE | 2019-10-20 14:30 | CT ---
EXAMINATION TYPE: CT abdomen pelvis wo con DATE OF EXAM: 10/20/2019 COMPARISON: 10/06/2018 HISTORY: Bilateral back pain CT DLP: 689.4 mGycm Automated exposure control for dose reduction was used. TECHNIQUE: Helical acquisition of images was performed from the lung bases through the pelvis. FINDINGS: LUNG BASES: Heart is enlarged there subsegmental consolidation at both lung bases. Sternotomy wires a re noted. Suggestion of cardiac leads correlate clinically. Coronary artery calcification noted. Find ings suggest chronic interstitial lung disease. LIVER/GB: No significant abnormality is appreciated. PANCREAS: No significant abnormality is seen. SPLEEN: No significant abnormality is seen. ADRENALS: No significant abnormality is seen. KIDNEYS: No significant abnormality is seen. ADENOPATHY: None visualized. OSSEOUS STRUCTURES: Hypertrophic and degenerative change of the spine. Arthropathy of the hips. BOWEL: There is an area of bowel wall thickening involving the sigmoid colon on axial image 87 with surrounding diverticula in a pattern most suggestive of acute diverticulitis. There is a small 1 cm a latoya of collection adjacent to the bowel wall likely in the basis of a perforation with small amount o f free air. Differential diagnosis includes perforated diverticulitis as well as perforated neoplasm correlate clinically. OTHER: Prostate prominent in size. There is atherosclerotic change of the vasculature including the a lisa. Aorta measures a maximal diameter of 2.5 cm compatible with ectasia. IMPRESSION: 1. There is bowel wall thickening of the sigmoid colon with numerous diverticula and pericolonic infl ammatory changes most likely in the basis of acute diverticulitis. There is a small air collection ad jacent to the bowel wall suspicious for perforation and small amount of free air. Follow-up to resolu tion to exclude underlying neoplasm. 2. Severe cardiomegaly.
[2019-10-20] MEDS ORDERED: MORPHINE SULFATE 4 MG/ML SYRINGE IV PRN (14:50)
[2019-10-20] MEDS ORDERED: NALOXONE 0.4 MG/ML 1 ML VIAL IV PRN (14:50)
[2019-10-20 17:04] LABS: Glucose,Whole Blood 111 mg/dL (75-99)
[2019-10-20] MEDS ORDERED: hydrALAZINE HCL 20 MG/ML 1 ML VIAL IVP PRN (17:57)
[2019-10-20] MEDS: LISINOPRIL 5 MG TAB PO SCH (18:13)
[2019-10-20] MEDS: SODIUM CHLORIDE 0.9% 1,000 ML IV SCH (18:13)
--- NOTE | 2019-10-20 21:12 | P.GSCN ---
History of Present Illness Consult date: 10/20/19 History of present illness: CHIEF COMPLAINT: Diverticulitis HISTORY OF PRESENT ILLNESS: The patient is an 89-year-old male who has primarily been independent was brought in by his family members. Most history is obtained by his family members as he is very hard of hearing. His family at bedside reports that he is very independent and active. In the last 2-3 days he developed new onset lower back pain. Separately, his granddaughter who is a certified nurse entry level administrative assistant reports that her grandfather had low appetite. As result of the severity of his bilateral lower back pain and abdominal pain and appetite he was brought to emergency room. His family reports she's been on antibiotics intermittently for the last 2 months resolved abdominal pain would improve. Findings on CT demonstrated a localized perforated diverticulitis. His family also reports that he had worsening appetite and abdominal pain following a jones lettuce tomato sandwich 2 days ago. He has had decline in health the last 2 months with varying abdominal pain particularly of the right upper quadrant and bilateral upper abdomen. He still has his gallbladder. He has recent history of transaminases including fatty food intolerance and right upper quadrant abdominal pain. Denies any previous abdominal surgeries. No reports of fevers or chills. As result of the CT, finding is consistent with perforated diverticulitis hence general surgery is consulted. PAST MEDICAL HISTORY: See list. PAST SURGICAL HISTORY: See list. MEDICATIONS: See list. ALLERGIES: See list. SOCIAL HISTORY: See list. FAMILY HISTORY: See list. REVIEW OF ORGAN SYSTEMS: CONSTITUTIONAL: No fevers or chills. Has recent weight loss. EYES: Denies any trouble with vision. No glasses. HEENT: Hard of hearing. No nosebleeds. No difficulty swallowing. Wears hearing aids. RESPIRATORY: Past pneumonia. Denies any troubles with breathing or dyspnea on exertion. CARDIOVASCULAR: Past chest pain. History of CABG. Casting Director Dr. RIMA Oh. GASTROINTESTINAL: Has fatty food intolerance. Has change in bowel habits and gas bloat. Has irritable bowel syndrome GENITOURINARY: Denies any blood in urine. Has increased urinary frequency. NEUROLOGICAL: Has numbness or tingling along the distal extremities. No seizure disorders or headaches. Past history of stroke. MUSCULOSKELETAL: Has back pain, stiffness or joint arthritis. Has gout. SKIN: No current skin cancer. No rash. PSYCHIATRIC: Denies current depression or suicidal thoughts. ENDOCRINE: Has thyroid disorders. Denies any blood sugar glucose intolerance. HEME/LYMPHATIC: Denies any lumps and bumps around the neck. No recent deep venou s thrombosis. ALLERGY/IMMUNOLOGY: No immunoglobulin therapy. No immune deficiencies. BREAST: Denies current breast lumps, pain or nipple discharge. PHYSICAL EXAM: VITALS: Reviewed CONSTITUTIONAL: Well developed and in no acute distress. EYES: Conjuctivae without sclera icterus. Pupils are equally round and reactive to light. Extraocular movements grossly intact. HEAD, EARS, NOSE, THROAT: Moist buccal mucosa. Head is atraumatic, normocephalic. Heart of hearing. No nasal drainage. NECK: Supple. No JV distention. No thyroidomegaly. RESPIRATORY: Non-labored respirations and equal bilateral excursions. No gross wheezes. CARDIOVASCULAR: Regular rate and rhythm. Extremities without moderate edema. Palpable 2+ radial pulses. ABDOMEN: Soft. No peritonitis. Mild tenderness right upper quadrant and bilateral lower abdomen MUSCULOSKELETAL: Nail and fingers with good capillary refill. SKIN: Warm and well perfused with good skin turgor. NEUROLOGIC: Cranial nerves I through XII grossly intact. No focal or lateralizing signs. PSYCH: Appropriate affect. Alert and oriented to person, place and time. CLINCAL LABS: Reviewed. White blood cell count normal over 8000. Hemoglobin low 10.9. Creatinine elevated 1.29 IMAGING: Independently reviewed with localized inflammation of the sigmoid colon. No diffuse pneumoperitoneum identified. No evidence of small bowel obstruction. Mild inflammatory changes along the gallbladder. This is my independent interpretation. RADIOLOGY: Report reviewed with inflammatory changes along the sigmoid colon and small 1 cm fluid collection EKG reviewed with first-degree AV block ASSESSMENT: 1. Perforated diverticulitis localized 2. History of right upper quadrant abdominal pain with irritable bowel syndrome 3. New lower back pain 4. Ischemic cardiomyopathy PLAN: 1. Recommend conservative management with IV antibiotics for localized small perforation. 2. With his right upper quadrant abdominal pain including intolerance of fatty foods, high suspicion for cholecystitis as well. May need additional independent testing of the gallbladder including HIDA and ultrasound 3. Recommend IV antibiotics 4. May have ice chips and popsicles 5. Above care plan discussed with patient and family at bedside who are agreeable with plan of care Thank you for this kind consultation. Past Medical History Past Medical History: Asthma, CVA/TIA, Diabetes Mellitus, GERD/Reflux, Hypertension, Osteoarthritis (OA) Additional Past Medical History / Comment(s): TIA in 2004 History of Any Multi-Drug Resistant Organisms: None Reported Past Surgical History: Coronary Bypass/CABG Additional Past Surgical History / Comment(s): vein stripping Past Anesthesia/Blood Transfusion Reactions: No Reported Reaction Past Psychological History: No Psychological Hx Reported Smoking Status: Former smoker Past Alcohol Use History: None Reported Past Drug Use History: None Reported Medications and Allergies Home Medications Medication Instructions Recorded Confirmed Type Allopurinol [Zyloprim] 100 mg PO DAILY 10/05/18 10/20/19 History Aspirin 81 mg PO DAILY 10/05/18 10/20/19 History Gabapentin [Neurontin] 100 mg PO DAILY 10/05/18 10/20/19 History Levothyroxine Sodium 25 mcg PO DAILY 10/05/18 10/20/19 History Pioglitazone [Actos] 30 mg PO DAILY 10/05/18 10/20/19 History Acetaminophen Tab [Tylenol Tab] 650 mg PO Q6H PRN 10/20/19 10/20/19 History Cholecalciferol [Vitamin D3 (25 2,000 unit PO DAILY 10/20/19 10/20/19 History Mcg = 1000 Iu)] Cyanocobalamin [Vitamin B-12] 500 mcg PO DAILY 10/20/19 10/20/19 History Dicyclomine HCl 10 mg PO QID PRN 10/20/19 10/20/19 History Lisinopril [Zestril] 2.5 mg PO DAILY 10/20/19 10/20/19 History Loratadine 10 mg PO DAILY 10/20/19 10/20/19 History Metoprolol Tartrate [Lopressor] 25 mg PO BID 10/20/19 10/20/19 History Pravastatin Sodium [Pravachol] 20 mg PO HS 10/20/19 10/20/19 History Turmeric Root Extract [Turmeric] 500 mg PO DAILY 10/20/19 10/20/19 History Allergies Allergy/AdvReac Type Severity Reaction Status Date / Time No Known Allergies Allergy Verified 10/20/19 15:51 Surgical - Exam Vital Signs Temp Pulse Resp BP Pulse Ox 97.8 F 79 18 138/72 98 10/20/19 11:14 10/20/19 11:14 10/20/19 11:14 10/20/19 11:14 10/20/19 11:14 Results - Labs 10/20/19 12:30 10/20/19 12:30 Abnormal Lab Results - Last 24 Hours (Table) 10/20/19 10/20/19 10/20/19 Range/Units 12:30 12:30 13:58 RBC 3.45 L (4.30-5.90) m/uL Hgb 10.9 L (13.0-17.5) gm/dL Hct 32.4 L (39.0-53.0) % BUN 27 H (9-20) mg/dL Creatinine 1.29 H (0.66-1.25) mg/dL Glucose 144 H (74-99) mg/dL POC Glucose (mg/dL) (75-99) mg/dL Total Protein 6.2 L (6.3-8.2) g/dL Albumin 3.4 L (3.5-5.0) g/dL Urine Protein 1+ H (Negative) Urine Mucus Rare H (None) /hpf 10/20/19 Range/Units 17:02 RBC (4.30-5.90) m/uL Hgb (13.0-17.5) gm/dL Hct (39.0-53.0) % BUN (9-20) mg/dL Creatinine (0.66-1.25) mg/dL Glucose (74-99) mg/dL POC Glucose (mg/dL) 111 H (75-99) mg/dL Total Protein (6.3-8.2) g/dL Albumin (3.5-5.0) g/dL Urine Protein (Negative) Urine Mucus (None) /hpf Diabetes panel 10/20/19 Range/Units 12:30 Sodium 138 (137-145) mmol/L Potassium 4.1 (3.5-5.1) mmol/L Chloride 104 (98-107) mmol/L Carbon Dioxide 25 (22-30) mmol/L BUN 27 H (9-20) mg/dL Creatinine 1.29 H (0.66-1.25) mg/dL Glucose 144 H (74-99) mg/dL Calcium 9.3 (8.4-10.2) mg/dL AST 30 (17-59) U/L ALT 26 (21-72) U/L Alkaline Phosphatase 76 (38-126) U/L Total Protein 6.2 L (6.3-8.2) g/dL Albumin 3.4 L (3.5-5.0) g/dL Calcium panel 10/20/19 Range/Units 12:30 Calcium 9.3 (8.4-10.2) mg/dL Albumin 3.4 L (3.5-5.0) g/dL Pituitary panel 10/20/19 Range/Units 12:30 Sodium 138 (137-145) mmol/L Potassium 4.1 (3.5-5.1) mmol/L Chloride 104 (98-107) mmol/L Carbon Dioxide 25 (22-30) mmol/L BUN 27 H (9-20) mg/dL Creatinine 1.29 H (0.66-1.25) mg/dL Glucose 144 H (74-99) mg/dL Calcium 9.3 (8.4-10.2) mg/dL Adrenal panel 10/20/19 Range/Units 12:30 Sodium 138 (137-145) mmol/L Potassium 4.1 (3.5-5.1) mmol/L Chloride 104 (98-107) mmol/L Carbon Dioxide 25 (22-30) mmol/L BUN 27 H (9-20) mg/dL Creatinine 1.29 H (0.66-1.25) mg/dL Glucose 144 H (74-99) mg/dL Calcium 9.3 (8.4-10.2) mg/dL Total Bilirubin 1.3 (0.2-1.3) mg/dL AST 30 (17-59) U/L ALT 26 (21-72) U/L Alkaline Phosphatase 76 (38-126) U/L Total Protein 6.2 L (6.3-8.2) g/dL Albumin 3.4 L (3.5-5.0) g/dL Assessment and Plan (1) Ischemic cardiomyopathy Current Visit: Yes Status: Acute Code(s): I25.5 - ISCHEMIC CARDIOMYOPATHY SNOMED Code(s): 212375130 (2) History of TIA (transient ischemic attack) Current Visit: Yes Status: Acute Code(s): Z86.73 - PRSNL HX OF TIA (TIA), AND CEREB INFRC W/O RESID DEFICITS SNOMED Code(s): 251370972 (3) Hard of hearing Current Visit: Yes Status: Acute Code(s): H91.90 - UNSPECIFIED HEARING LOSS, UNSPECIFIED EAR SNOMED Code(s): 96432860 (4) Cardiomegaly Current Visit: Yes Status: Acute Code(s): I51.7 - CARDIOMEGALY SNOMED Code(s): 0275161 (5) Right upper quadrant abdominal pain Current Visit: Yes Status: Acute Code(s): R10.11 - RIGHT UPPER QUADRANT PAIN SNOMED Code(s): 863616620 (6) Diverticulitis of colon with perforation Current Visit: Yes Status: Acute Code(s): K57.20 - DVTRCLI OF LG INT W PERFORATION AND ABSCESS W/O BLEEDING SNOMED Code(s): 07375306 (7) Chronic anemia Current Visit: Yes Status: Acute Code(s): D64.9 - ANEMIA, UNSPECIFIED SNOMED Code(s): 159815024 (8) Renal insufficiency Current Visit: Yes Status: Acute Code(s): N28.9 - DISORDER OF KIDNEY AND URETER, UNSPECIFIED SNOMED Code(s): 180306439
[2019-10-20] MEDS: HEPARIN SODIUM,PORCINE 5,000 UNIT/ML 1 ML VIAL SQ SCH (21:42)
[2019-10-20] MEDS: METOPROLOL TARTRATE 25 MG TAB PO SCH (21:42)
[2019-10-21 00:14] LABS: Glucose,Whole Blood 108 mg/dL (75-99)
[2019-10-21] MEDS: INSULIN ASPART (NovoLOG) 100 UNIT/ML VIAL SQ SCH ×5 (00:15→23:51)
[2019-10-21] MEDS: PIPERACILLIN-TAZOBACTAM 3.375 GM in SODIUM CHLORIDE 0.9% 100 ML IVPB SCH ×4 (00:30→23:52)
[2019-10-21] MEDS: SODIUM CHLORIDE 0.9% 1,000 ML IV SCH ×2 (04:51→19:40)
[2019-10-21 06:10] LABS: Glucose,Whole Blood 99 mg/dL (75-99)
[2019-10-21] MEDS: GABAPENTIN 100 MG CAP PO SCH (09:01)
[2019-10-21] MEDS: LISINOPRIL 5 MG TAB PO SCH (09:01)
[2019-10-21] MEDS: HEPARIN SODIUM,PORCINE 5,000 UNIT/ML 1 ML VIAL SQ SCH ×2 (09:01→19:40)
[2019-10-21] MEDS: METOPROLOL TARTRATE 25 MG TAB PO SCH ×2 (09:01→19:40)
[2019-10-21] MEDS: PANTOPRAZOLE 40 MG/10 ML VIAL IVP SCH (10:24)
--- NOTE | 2019-10-21 11:01 | P.PN ---
<Hiral Serra - Last Filed: 10/21/19 10:57> Subjective Progress Note Date: 10/21/19 CHIEF COMPLAINT: Diverticulitis HISTORY OF PRESENT ILLNESS: Patient examined this morning at the bedside. He reports improvement in his abdominal pain. Passing flatus. Denies nausea or vomiting. Vital signs stable. Afebrile. PHYSICAL EXAM: VITAL SIGNS: Reviewed. GENERAL: Well-developed in no acute distress. HEENT: No sclera icterus. Extraocular movements grossly intact. Moist buccal mucosa. Head is atraumatic, normocephalic. ABDOMEN: Soft. Nondistended. Minimal tenderness with palpation of left lower quadrant. NEUROLOGIC: Alert and oriented. Cranial nerves II through XII grossly intact. ASSESSMENT: 1. Diverticulitis with localized perforation PLAN: -Continue bowel rest -NPO except for ice chips and popsicles. Anticipate clear liquid diet to begin tomorrow -Continue IV antibiotics -Dr. Fonseca planning possible outpatient testing for gallbladder dysfunction Nurse practitioner note has been reviewed by physician. Signing provider agrees with the documented findings, assessment, and plan of care. Objective - Vital Signs Vital signs: Vital Signs Temp 98.2 F 10/21/19 07:00 Pulse 62 10/21/19 08:20 Resp 17 10/21/19 07:00 BP 122/49 10/21/19 07:00 Pulse Ox 95 10/21/19 07:00 Intake & Output 10/20/19 10/21/19 10/21/19 18:59 06:59 18:59 Intake Total 800 Balance 800 Weight 87.09 kg Intake: Intake, IV Titration 800 Amount Piperacillin-Tazobactam 3 100 .375 gm In Sodium Chloride 0.9% 100 ml @ 25 mls/hr IVPB Q8HR [facility] Rx# :[id number] Sodium Chloride 0.9% 1, 700 000 ml @ 70 mls/hr IV . [id number] [facility] Rx#:[id number] Other: Voiding Method Toilet Toilet # Voids 1 - Labs CBC & Chem 7: 10/20/19 12:30 10/20/19 12:30 Labs: Abnormal Lab Results - Last 24 Hours (Table) 10/20/19 10/20/19 10/20/19 Range/Units 12:30 12:30 13:58 RBC 3.45 L (4.30-5.90) m/uL Hgb 10.9 L (13.0-17.5) gm/dL Hct 32.4 L (39.0-53.0) % BUN 27 H (9-20) mg/dL Creatinine 1.29 H (0.66-1.25) mg/dL Glucose 144 H (74-99) mg/dL POC Glucose (mg/dL) (75-99) mg/dL Total Protein 6.2 L (6.3-8.2) g/dL Albumin 3.4 L (3.5-5.0) g/dL Urine Protein 1+ H (Negative) Urine Mucus Rare H (None) /hpf 10/20/19 10/21/19 Range/Units 17:02 00:12 RBC (4.30-5.90) m/uL Hgb (13.0-17.5) gm/dL Hct (39.0-53.0) % BUN (9-20) mg/dL Creatinine (0.66-1.25) mg/dL Glucose (74-99) mg/dL POC Glucose (mg/dL) 111 H 108 H (75-99) mg/dL Total Protein (6.3-8.2) g/dL Albumin (3.5-5.0) g/dL Urine Protein (Negative) Urine Mucus (None) /hpf <Joseph Shen - Last Filed: 10/21/19 11:42> Subjective As above. Patient says his pain is down to a 1 out of 10. He is tolerating ice chips. No nausea or vomiting. Will begin clear liquid diet. Ambulate. C ontinue IV antibiotics. Objective - Vital Signs Vital signs: Vital Signs Temp 98.2 F 10/21/19 07:00 Pulse 62 10/21/19 08:20 Resp 17 10/21/19 07:00 BP 122/49 10/21/19 07:00 Pulse Ox 95 10/21/19 07:00 Intake & Output 10/20/19 10/21/19 10/21/19 18:59 06:59 18:59 Intake Total 800 Balance 800 Weight 87.09 kg Intake: Intake, IV Titration 800 Amount Piperacillin-Tazobactam 3 100 .375 gm In Sodium Chloride 0.9% 100 ml @ 25 mls/hr IVPB Q8HR [facility] Rx# :[id number] Sodium Chloride 0.9% 1, 700 000 ml @ 70 mls/hr IV . [id number] [facility] Rx#:[id number] Other: Voiding Method Toilet Toilet # Voids 1 - Labs CBC & Chem 7: 10/20/19 12:30 10/20/19 12:30 Labs: Abnormal Lab Results - Last 24 Hours (Table) 10/20/19 10/20/19 10/20/19 Range/Units 12:30 12:30 13:58 RBC 3.45 L (4.30-5.90) m/uL Hgb 10.9 L (13.0-17.5) gm/dL Hct 32.4 L (39.0-53.0) % BUN 27 H (9-20) mg/dL Creatinine 1.29 H (0.66-1.25) mg/dL Glucose 144 H (74-99) mg/dL POC Glucose (mg/dL) (75-99) mg/dL Total Protein 6.2 L (6.3-8.2) g/dL Albumin 3.4 L (3.5-5.0) g/dL Urine Protein 1+ H (Negative) Urine Mucus Rare H (None) /hpf 10/20/19 10/21/19 10/21/19 Range/Units 17:02 00:12 11:24 RBC (4.30-5.90) m/uL Hgb (13.0-17.5) gm/dL Hct (39.0-53.0) % BUN (9-20) mg/dL Creatinine (0.66-1.25) mg/dL Glucose (74-99) mg/dL POC Glucose (mg/dL) 111 H 108 H 126 H (75-99) mg/dL Total Protein (6.3-8.2) g/dL Albumin (3.5-5.0) g/dL Urine Protein (Negative) Urine Mucus (None) /hpf
[2019-10-21 11:25] LABS: Glucose,Whole Blood 126 mg/dL (75-99)
--- NOTE | 2019-10-21 13:12 | P.HPIM ---
History of Present Illness H&P Date: 10/21/19 Chief Complaint: Abdominal pain, flank pain, nausea, diarrhea This is an 89-year-old male patient of Dr. Olvera with past medical history of diabetes mellitus type 2, hypertension, coronary artery disease status post 1 vessel CABG 15 [address] Hanson and follows with executive services administrator, Dr. RIMA Oh, history of TIA, benign prostatic hypertrophy, seasonal ALLERGIES, hypothyroidism, generalized osteoarthritis, chronic anemia. He was last hospitalized in September 2018 at which time he was treated for acute ileitis secondary to gastroenteritis, acute transaminitis likely secondary to hypoperfusion. Patient complains of symptoms starting initially with diarrhea and intermittent abdominal pain on and off for one month. He also had some vomiting that went away. He denies any recent intake of nuts or seeds. No blood in his stools. Pain is located in the right lower quadrant and right flank area. He denies any chest pain or shortness of breath. Patient came into [facility] emergency center for evaluation where he was found to be afebrile, blood pressure 138/72, pulse 79 and pulse ox 90% on room air. White count was normal, hemoglobin 10.9, BUN 27, creatinine 1.29, blood sugar 144. Electrolytes and liver function tests were within normal limits, troponin normal. Urinalysis clear. EKG is a sinus rhythm with a first-degree block with no acute changes. CAT scan of the abdomen and pelvis revealed bowel wall thickening of the sigmoid colon with numerous diverticula and pericolonic inflammatory changes likely on the basis of acute diverticulitis. Small air collection adjacent to the bowel wall suspicious for perforation and small amount of free air. Follow-up to resolution to exclude underlying neoplasm. Severe cardiomegaly. Patient has been admitted to the MedSur floor, started on IV antibiotics and IV fluids and consult with general surgery. Review of Systems Constitutional: Reports poor appetite, Denies chills, Denies fatigue, Denies fever Eyes: denies blurred vision, denies pain Ears, nose, mouth and throat: Denies headache, Denies nasal congestion, Denies nasal discharge, Denies sore throat, Denies vertigo Cardiovascular: Denies chest pain, Denies decreased exercise tolerance, Denies dyspnea on exertion, Denies edema, Denies leg edema, Denies lightheadedness, Denies shortness of breath, Denies syncope Respiratory: Denies cough, Denies cough with sputum, Denies excessive sputum, Denies hemoptysis, Denies home oxygen, Denies wheezing Gastrointestinal: Reports abdominal pain, Reports bloating, Reports diarrhea, Reports loss of appetite, Reports nausea, Reports vomiting Genitourinary: Denies dysuria, Denies urinary retention Musculoskeletal: Denies frequent falls, Denies gait dysfunction, Denies muscle weakness, Denies myalgias Integumentary: Denies pruritus, Denies rash, Denies wounds Neurological: Denies change in mentation, Denies change in speech, Denies numbness, Denies weakness Psychiatric: Denies anxiety, Denies depression Endocrine: Denies fatigue, Denies weight change Past Medical History Past Medical History: Asthma, CVA/TIA, Diabetes Mellitus, GERD/Reflux, Hypertension, Osteoarthritis (OA) Additional Past Medical History / Comment(s): TIA in 2004 History of Any Multi-Drug Resistant Organisms: None Reported Past Surgical History: Coronary Bypass/CABG Additional Past Surgical History / Comment(s): vein stripping Past Anesthesia/Blood Transfusion Reactions: No Reported Reaction Past Psychological History: No Psychological Hx Reported Smoking Status: Former smoker Past Alcohol Use History: None Reported Additional Past Alcohol Use History / Comment(s): Patient was a smoker for 53 years and quit in 1969. Patient denies any use of marijuana, illicit drug use or alcohol abuse. He lives alone in his own home. He is retired from [employer]. He served in the . Past Drug Use History: None Reported - Past Family History Father Additional Family Medical History / Comment(s): Father at 73 from CAD. Mother Additional Family Medical History / Comment(s): Mother at age 88 with history of coronary artery disease and diverticulitis. Brother(s) Additional Family Medical History / Comment(s): Patient has 3 brothers: One as a baby, one from polio, occasions and one recently but patient does not know the cause. Sister(s) Additional Family Medical History / Comment(s): Patient has 3 sisters and one following a head injury. Patient has 3 daughters with no major medical problems. Medications and Allergies Home Medications Medication Instructions Recorded Confirmed Type Allopurinol [Zyloprim] 100 mg PO DAILY 10/05/18 10/20/19 History Aspirin 81 mg PO DAILY 10/05/18 10/20/19 History Gabapentin [Neurontin] 100 mg PO DAILY 10/05/18 10/20/19 History Levothyroxine Sodium 25 mcg PO DAILY 10/05/18 10/20/19 History Pioglitazone [Actos] 30 mg PO DAILY 10/05/18 10/20/19 History Acetaminophen Tab [Tylenol Tab] 650 mg PO Q6H PRN 10/20/19 10/20/19 History Cholecalciferol [Vitamin D3 (25 2,000 unit PO DAILY 10/20/19 10/20/19 History Mcg = 1000 Iu)] Cyanocobalamin [Vitamin B-12] 500 mcg PO DAILY 10/20/19 10/20/19 History Dicyclomine HCl 10 mg PO QID PRN 10/20/19 10/20/19 History Lisinopril [Zestril] 2.5 mg PO DAILY 10/20/19 10/20/19 History Loratadine 10 mg PO DAILY 10/20/19 10/20/19 History Metoprolol Tartrate [Lopressor] 25 mg PO BID 10/20/19 10/20/19 History Pravastatin Sodium [Pravachol] 20 mg PO HS 10/20/19 10/20/19 History Turmeric Root Extract [Turmeric] 500 mg PO DAILY 10/20/19 10/20/19 History Allergies Allergy/AdvReac Type Severity Reaction Status Date / Time No Known Allergies Allergy Verified 10/20/19 15:51 Physical Exam Vitals: Vital Signs Temp Pulse Pulse Resp BP BP Pulse Ox 10/21/19 07:00 98.2 F 62 17 122/49 95 10/21/19 01:34 98.4 F 65 18 120/61 97 10/20/19 20:40 98.0 F 67 16 166/66 99 10/20/19 17:33 69 181/67 10/20/19 16:19 98.4 F 76 16 171/89 96 10/20/19 11:14 97.8 F 79 18 138/72 98 Intake and Output 10/20/19 10/21/19 10/21/19 22:59 06:59 14:59 Intake Total 800 Balance 800 Intake: Intake, IV Titration 800 Amount Piperacillin-Tazobactam 3 100 .375 gm In Sodium Chloride 0.9% 100 ml @ 25 mls/hr IVPB Q8HR [facility] Rx# :[id number] Sodium Chloride 0.9% 1, 700 000 ml @ 70 mls/hr IV . [id number] [facility] Rx#:[id number] Other: Voiding Method Toilet # Voids 1 1 Weight 87.09 kg Gen: This is an 89-year-old male. He is resting in bed and appears to be comfortable and in no acute distress. HEENT: Head is atraumatic, normocephalic. Pupils equal, round. Sclerae is anicteric. NECK: Supple. No JVD. No lymphadenopathy. No thyromegaly. LUNGS: Clear to auscultation. No wheezes or rhonchi. No intercostal retractions. HEART: Regular rate and rhythm. Systolic ejection murmur murmur. ABDOMEN: Soft. Bowel sounds are present. No masses. Right lower quadrant tenderness. EXTREMITIES: No pedal edema. No calf tenderness. Dorsalis pedis +2 bilaterally. NEUROLOGICAL: Patient is awake, alert and oriented x3. Cranial nerves 2 through 12 are grossly intact. Results CBC & Chem 7: 10/20/19 12:30 10/20/19 12:30 Labs: Abnormal Lab Results - Last 24 Hours (Table) 10/20/19 10/20/19 10/20/19 Range/Units 12:30 12:30 13:58 RBC 3.45 L (4.30-5.90) m/uL Hgb 10.9 L (13.0-17.5) gm/dL Hct 32.4 L (39.0-53.0) % BUN 27 H (9-20) mg/dL Creatinine 1.29 H (0.66-1.25) mg/dL Glucose 144 H (74-99) mg/dL POC Glucose (mg/dL) (75-99) mg/dL Total Protein 6.2 L (6.3-8.2) g/dL Albumin 3.4 L (3.5-5.0) g/dL Urine Protein 1+ H (Negative) Urine Mucus Rare H (None) /hpf 10/20/19 10/21/19 Range/Units 17:02 00:12 RBC (4.30-5.90) m/uL Hgb (13.0-17.5) gm/dL Hct (39.0-53.0) % BUN (9-20) mg/dL Creatinine (0.66-1.25) mg/dL Glucose (74-99) mg/dL POC Glucose (mg/dL) 111 H 108 H (75-99) mg/dL Total Protein (6.3-8.2) g/dL Albumin (3.5-5.0) g/dL Urine Protein (Negative) Urine Mucus (None) /hpf Thrombosis Risk Factor Assmnt - DVT/VTE Prophylaxis DVT/VTE Prophylaxis: Pharmacologic Prophylaxis ordered Assessment and Plan Plan: 1. Abdominal pain secondary to acute perforated diverticulitis. Consult with Dr. Deuce holloway. Plan is for conservative management. Continue IV antibiotics in the form of Zosyn. Patient is currently on ice chips and popsicles. 2. History of right upper quadrant pain and irritable bowel syndrome. High suspicion for cholecystitis. Patient may need independent testing for gallbladder including HIDA and ultrasound. 3. Hypertension. Continue lisinopril 5 mg daily, Lopressor 25 mg twice daily, hydralazine 20 g IV push every 4 hours as needed 4. Diabetes mellitus type 2. Actos on hold. Continue NovoLog scale before maldonado ls and at bedtime 5. Benign prostatic hypertrophy. 6. Hyperlipidemia. Statin on hold. 7. Seasonal ALLERGIES, stable. 8. Gout, chronic. 9. Hypothyroidism. Continue levothyroxine 25 g daily. 10. History of coronary artery disease status post 1 vessel CABG, stable. 11. DVT prophylaxis. Heparin subcu. 12. GI prophylaxis. Protonix IV. Patient will be admitted to the hospital for a minimum of 2 night stay. Discharge plan: To be determined. Impression and plan of care have been directed as dictated by the signing physician. Therese Francois nurse practitioner acting as scribe for signing physician.
[2019-10-21 17:30] LABS: Glucose,Whole Blood 96 mg/dL (75-99)
[2019-10-21 23:44] LABS: Glucose,Whole Blood 94 mg/dL (75-99)
[2019-10-22 05:56] LABS: Glucose,Whole Blood 72 mg/dL (75-99)
[2019-10-22] MEDS: LEVOTHYROXINE 25 MCG TAB PO SCH (06:06)
[2019-10-22] MEDS: INSULIN ASPART (NovoLOG) 100 UNIT/ML VIAL SQ SCH ×4 (06:09→20:30)
[2019-10-22 06:16] LABS: Glucose,Whole Blood 100 mg/dL (75-99)
[2019-10-22] MEDS: PANTOPRAZOLE 40 MG/10 ML VIAL IVP SCH (08:47)
[2019-10-22] MEDS: HEPARIN SODIUM,PORCINE 5,000 UNIT/ML 1 ML VIAL SQ SCH ×2 (08:47→20:30)
[2019-10-22] MEDS: SODIUM CHLORIDE 0.9% 1,000 ML IV SCH (08:48)
[2019-10-22] MEDS: METOPROLOL TARTRATE 25 MG TAB PO SCH ×2 (08:48→20:30)
[2019-10-22] MEDS: LISINOPRIL 5 MG TAB PO SCH (08:48)
[2019-10-22] MEDS: PIPERACILLIN-TAZOBACTAM 3.375 GM in SODIUM CHLORIDE 0.9% 100 ML IVPB SCH ×3 (08:48→23:55)
[2019-10-22] MEDS: GABAPENTIN 100 MG CAP PO SCH (08:48)
[2019-10-22 09:57] LABS: Basophils % (A) 0 %; Eosinophils # (A) 0.4 k/uL (0-0.7); Eosinophils % (A) 6 %; HCT 31.7 % (39.0-53.0); HGB 10.2 gm/dL (13.0-17.5); Lymphocytes % (A) 17 %; MCH 30.3 pg (25.0-35.0); MCV 94.5 fL (80.0-100.0); Mean Platelet Volume 9.1; Monocytes # (A) 0.4 k/uL (0-1.0); Monocytes % (A) 6 %; Neutrophils # (A) 4.2 k/uL (1.3-7.7); Neutrophils % (A) 69 %; Platelet Count 167 k/uL (150-450); RBC 3.36 m/uL (4.30-5.90); RDW 13.3 % (11.5-15.5); WBC 6.1 k/uL (3.8-10.6)
[2019-10-22 10:14] LABS: Albumin 3.1 g/dL (3.5-5.0); Potassium 3.9 mmol/L (3.5-5.1); Total Bilirubin 0.9 mg/dL (0.2-1.3); Total Protein 5.7 g/dL (6.3-8.2)
--- NOTE | 2019-10-22 11:09 | US ---
EXAMINATION TYPE: US gallbladder DATE OF EXAM: 10/22/2019 COMPARISON: NONE CLINICAL HISTORY: Right upper quadrant pain. Pain EXAM MEASUREMENTS: Liver Length: 14.3 cm Gallbladder Wall: .3 cm CBD: .5 cm Right Kidney: 9.6 x 4.3 x 3.8 cm Pancreas: Obscured by bowel gas Liver: Increased attenuation Gallbladder: No stones seen Evidence for sonographic Malcolm's sign: No CBD: wnl Right Kidney: No hydronephrosis or masses seen IMPRESSION: 1. Increased attenuation to the liver is nonspecific and be seen with hepatic steatosis, diffuse hepa tocellular disease, or hepatitis.
[2019-10-22 11:36] LABS: Glucose,Whole Blood 130 mg/dL (75-99)
--- NOTE | 2019-10-22 12:22 | P.PN ---
<Hiral Serra - Last Filed: 10/22/19 12:21> Subjective Progress Note Date: 10/22/19 CHIEF COMPLAINT: Diverticulitis HISTORY OF PRESENT ILLNESS: Patient examined this morning at the bedside. He denies abdominal pain. Passing flatus. Denies nausea or vomiting. Vital signs stable. Afebrile. PHYSICAL EXAM: VITAL SIGNS: Reviewed. GENERAL: Well-developed in no acute distress. HEENT: No sclera icterus. Extraocular movements grossly intact. Moist buccal mucosa. Head is atraumatic, normocephalic. ABDOMEN: Soft. Nondistended. Nontender. No peritonitis. NEUROLOGIC: Alert and oriented. Cranial nerves II through XII grossly intact. ASSESSMENT: 1. Diverticulitis with localized perforation PLAN: -Begin clear liquid diet -Continue IV antibiotics -Dr. Fonseca planning possible outpatient testing for gallbladder dysfunction Nurse practitioner note has been reviewed by physician. Signing provider agrees with the documented findings, assessment, and plan of care. Objective - Vital Signs Vital signs: Vital Signs Temp 97.5 F L 10/22/19 07:00 Pulse 52 L 10/22/19 08:47 Resp 16 10/22/19 08:47 BP 144/63 10/22/19 07:00 Pulse Ox 96 10/22/19 07:00 Intake & Output 10/21/19 10/22/19 10/22/19 18:59 06:59 18:59 Intake Total 420 Output Total 400 Balance 20 Intake: Intake, IV Titration 420 Amount Sodium Chloride 0.9% 1, 420 000 ml @ 70 mls/hr IV . [id number] [facility] Rx#:[id number] Output: Urine 400 Other: Voiding Method Toilet Toilet Toilet # Voids 2 2 - Labs CBC & Chem 7: 10/22/19 09:33 10/22/19 09:33 Labs: Abnormal Lab Results - Last 24 Hours (Table) 10/22/19 10/22/19 10/22/19 Range/Units 05:54 06:14 09:33 RBC 3.36 L (4.30-5.90) m/uL Hgb 10.2 L (13.0-17.5) gm/dL Hct 31.7 L (39.0-53.0) % Carbon Dioxide (22-30) mmol/L Glucose (74-99) mg/dL POC Glucose (mg/dL) 72 L 100 H (75-99) mg/dL Total Protein (6.3-8.2) g/dL Albumin (3.5-5.0) g/dL 10/22/19 10/22/19 Range/Units 09:33 11:34 RBC (4.30-5.90) m/uL Hgb (13.0-17.5) gm/dL Hct (39.0-53.0) % Carbon Dioxide 21 L (22-30) mmol/L Glucose 115 H (74-99) mg/dL POC Glucose (mg/dL) 130 H (75-99) mg/dL Total Protein 5.7 L (6.3-8.2) g/dL Albumin 3.1 L (3.5-5.0) g/dL Microbiology - Last 24 Hours (Table) 10/20/19 16:15 Blood Culture - Preliminary Blood No Growth after 24 hours <Bernadine Fonseca - Last Filed: 10/22/19 21:03> Subjective As above, patient reports having a bowel movement and passing flatus. Abdominal pain resolved. He is tolerating liquid diet. ROS: No reports of nausea and vomiting. No fevers or chills. No new chest pain. No productive sputum PHYSICAL EXAM: VITAL SIGNS: Reviewed CONSTITUTIONAL: Well developed and in no acute distress. EYES: Conjuctivae without sclera icterus. Extraocular movements grossly intact. HEAD, EARS, NOSE, THROAT: Moist buccal mucosa. Head is atraumatic, normocephalic. RESPIRATORY: Non-labored respirations and equal bilateral excursions. CARDIOVASCULAR: Palpable 2+ radial pulses. ABDOMEN: Soft, nontender nondistended MUSCULOSKELETAL: No gross deformity of the lower extremities noted. No clubbing. No cyanosis. SKIN: Good skin turgor. Well perfused. NEUROLOGIC: Cranial nerves I through XII grossly intact. No focal or lateralizing signs. PSYCH: Appropriate affect. Alert and oriented to person, place and time. CLINICAL LABS: White blood cell count normal STUDIES: Ultrasound of gallbladder in a pending reviewed demonstrating a thickened gallbladder wall 3 mm. ASSESSMENT: 1. Diverticulitis 2. Right upper quadrant abdominal pain PLAN: 1. His abdominal pain is resolved. 2. May start low fiber diet with potential discharge tomorrow with home antibiotics at least 10 days Objective - Vital Signs Vital signs: Vital Signs Temp 97.7 F 10/22/19 19:15 Pulse 54 L 10/22/19 19:15 Resp 14 10/22/19 19:15 BP 146/53 10/22/19 19:15 Pulse Ox 97 10/22/19 19:15 Intake & Output 10/22/19 10/22/19 10/23/19 06:59 18:59 06:59 Intake Total 420 Output Total 400 Balance 20 Intake: Intake, IV Titration 420 Amount Sodium Chloride 0.9% 1, 420 000 ml @ 70 mls/hr IV . [id number] [facility] Rx#:[id number] Output: Urine 400 Other: Voiding Method Toilet Toilet # Voids 2 2 - Labs CBC & Chem 7: 10/22/19 09:33 10/22/19 09:33 Labs: Abnormal Lab Results - Last 24 Hours (Table) 10/22/19 10/22/19 10/22/19 Range/Units 05:54 06:14 09:33 RBC 3.36 L (4.30-5.90) m/uL Hgb 10.2 L (13.0-17.5) gm/dL Hct 31.7 L (39.0-53.0) % Carbon Dioxide (22-30) mmol/L Glucose (74-99) mg/dL POC Glucose (mg/dL) 72 L 100 H (75-99) mg/dL Total Protein (6.3-8.2) g/dL Albumin (3.5-5.0) g/dL 10/22/19 10/22/19 10/22/19 Range/Units 09:33 11:34 16:31 RBC (4.30-5.90) m/uL Hgb (13.0-17.5) gm/dL Hct (39.0-53.0) % Carbon Dioxide 21 L (22-30) mmol/L Glucose 115 H (74-99) mg/dL POC Glucose (mg/dL) 130 H 185 H (75-99) mg/dL Total Protein 5.7 L (6.3-8.2) g/dL Albumin 3.1 L (3.5-5.0) g/dL 10/22/19 Range/Units 20:18 RBC (4.30-5.90) m/uL Hgb (13.0-17.5) gm/dL Hct (39.0-53.0) % Carbon Dioxide (22-30) mmol/L Glucose (74-99) mg/dL POC Glucose (mg/dL) 172 H (75-99) mg/dL Total Protein (6.3-8.2) g/dL Albumin (3.5-5.0) g/dL Microbiology - Last 24 Hours (Table) 10/20/19 16:15 Blood Culture - Preliminary Blood No Growth after 48 hours Assessment and Plan (1) Ischemic cardiomyopathy Current Visit: Yes Status: Acute Code(s): I25.5 - ISCHEMIC CARDIOMYOPATHY SNOMED Code(s): 218995181 (2) History of TIA (transient ischemic attack) Current Visit: Yes Status: Acute Code(s): Z86.73 - PRSNL HX OF TIA (TIA), AND CEREB INFRC W/O RESID DEFICITS SNOMED Code(s): 109743011 (3) Hard of hearing Current Visit: Yes Status: Acute Code(s): H91.90 - UNSPECIFIED HEARING LOSS, UNSPECIFIED EAR SNOMED Code(s): 71370527 (4) Cardiomegaly Current Visit: Yes Status: Acute Code(s): I51.7 - CARDIOMEGALY SNOMED Code(s): 7240871 (5) Right upper quadrant abdominal pain Current Visit: Yes Status: Acute Code(s): R10.11 - RIGHT UPPER QUADRANT PAIN SNOMED Code(s): 811820015 (6) Diverticulitis of colon with perforation Current Visit: Yes Status: Acute Code(s): K57.20 - DVTRCLI OF LG INT W PERFORATION AND ABSCESS W/O BLEEDING SNOMED Code(s): 38845103 (7) Chronic anemia Current Visit: Yes Status: Acute Code(s): D64.9 - ANEMIA, UNSPECIFIED SNOMED Code(s): 955277379 (8) Renal insufficiency Current Visit: Yes Status: Acute Code(s): N28.9 - DISORDER OF KIDNEY AND URETER, UNSPECIFIED SNOMED Code(s): 778593981
--- NOTE | 2019-10-22 12:44 | P.PN ---
Subjective Progress Note Date: 10/22/19 This is an 89-year-old male patient of Dr. Olvera with past medical history of diabetes mellitus type 2, hypertension, coronary artery disease status post 1 vessel CABG [address] Hanson and follows with dressage judge, Dr. RIMA Oh, history of TIA, benign prostatic hypertrophy, season al ALLERGIES, hypothyroidism, generalized osteoarthritis, chronic anemia. He was last hospitalized in September 2018 at which time he was treated for acute ileitis secondary to gastroenteritis, acute transaminitis likely secondary to hypoperfusion. Patient complains of symptoms starting initially with diarrhea and intermittent abdominal pain on and off for one month. He also had some vomiting that went away. He denies any recent intake of nuts or seeds. No blood in his stools. Pain is located in the right lower quadrant and right flank area. He denies any chest pain or shortness of breath. Patient came into [facility] emergency center for evaluation where he was found to be afebrile, blood pressure 138/72, pulse 79 and pulse ox 90% on room air. White count was normal, hemoglobin 10.9, BUN 27, creatinine 1.29, blood sugar 144. Electrolytes and liver function tests were within normal limits, troponin normal. Urinalysis clear. EKG is a sinus rhythm with a first- degree block with no acute changes. CAT scan of the abdomen and pelvis revealed bowel wall thickening of the sigmoid colon with numerous diverticula and pericolonic inflammatory changes likely on the basis of acute diverticulitis. Small air collection adjacent to the bowel wall suspicious for perforation and small amount of free air. Follow-up to resolution to exclude underlying neoplasm. Severe cardiomegaly. Patient has been admitted to the MedSur floor, started on IV antibiotics and IV fluids and consult with general surgery. 10/22: Patient continues to have right lower quadrant pain and tenderness, improved from yesterday. He is passing gas. No nausea or vomiting. General surgery has advanced his diet to clear liquid. Gallbladder ultrasound revealed increased attenuation to the liver is nonspecific and may be seen with hepatic steatosis, diffuse hepatocellular disease or hepatitis. Patient has been afebrile, heart rate 52, blood pressure 144/63, pulse ox 96% on room air. Repeat lab work reveals a stable hemoglobin at 10.2, creatinine is 1.16, blood sugars running between 72 and 130. Liver function tests within normal limits. Review of Systems Constitutional: Denies poor appetite, Denies chills, Denies fatigue, Denies feve r Eyes: denies blurred vision, denies pain Ears, nose, mouth and throat: Denies headache, Denies nasal congestion, Denies nasal discharge, Denies sore throat, Denies vertigo Cardiovascular: Denies chest pain, Denies decreased exercise tolerance, Denies dyspnea on exertion, Denies edema, Denies leg edema, Denies lightheadedness, Denies shortness of breath, Denies syncope Respiratory: Denies cough, Denies cough with sputum, Denies excessive sputum, Denies hemoptysis, Denies home oxygen, Denies wheezing Gastrointestinal: Reports abdominal pain, Reports bloating, denies diarrhea, denies loss of appetite, denies nausea, denies vomiting Genitourinary: Denies dysuria, Denies urinary retention Musculoskeletal: Denies frequent falls, Denies gait dysfunction, Denies muscle weakness, Denies myalgias Integumentary: Denies pruritus, Denies rash, Denies wounds Neurological: Denies change in mentation, Denies change in speech, Denies numbness, Denies weakness Psychiatric: Denies anxiety, Denies depression Endocrine: Denies fatigue, Denies weight change Objective - Vital Signs Vital signs: Vital Signs Temp 97.5 F L 10/22/19 07:00 Pulse 52 L 10/22/19 07:00 Resp 16 10/22/19 07:00 BP 144/63 10/22/19 07:00 Pulse Ox 96 10/22/19 07:00 Intake & Output 10/21/19 10/22/19 10/22/19 18:59 06:59 18:59 Intake Total 420 Output Total 400 Balance 20 Intake: Intake, IV Titration 420 Amount Sodium Chloride 0.9% 1, 420 000 ml @ 70 mls/hr IV . [id number] [facility] Rx#:[id number] Output: Urine 400 Other: Voiding Method Toilet Toilet # Voids 2 2 - Exam Gen: This is an 89-year-old male. He is resting in bed and appears to be comfortable and in no acute distress. HEENT: Head is atraumatic, normocephalic. Pupils equal, round. Sclerae is anicteric. NECK: Supple. No JVD. No lymphadenopathy. No thyromegaly. LUNGS: Clear to auscultation. No wheezes or rhonchi. No intercostal retractions. HEART: Regular rate and rhythm. Systolic ejection murmur murmur. ABDOMEN: Soft. Bowel sounds are present. No masses. Mild right lower quadrant tenderness. EXTREMITIES: No pedal edema. No calf tenderness. Dorsalis pedis +2 bilateral ly. NEUROLOGICAL: Patient is awake, alert and oriented x3. Cranial nerves 2 through 12 are grossly intact. - Labs CBC & Chem 7: 10/22/19 09:33 10/22/19 09:33 Labs: Abnormal Lab Results - Last 24 Hours (Table) 10/21/19 10/22/19 10/22/19 Range/Units 11:24 05:54 06:14 POC Glucose (mg/dL) 126 H 72 L 100 H (75-99) mg/dL Microbiology - Last 24 Hours (Table) 10/20/19 16:15 Blood Culture - Preliminary Blood No Growth after 24 hours Assessment and Plan Plan: 1. Abdominal pain secondary to acute perforated diverticulitis. Consult with Dr. Deuce holloway. Plan is for conservative management. Continue IV antibiotics in the form of Zosyn. Patient is currently on ice chips and popsicles to be advanced to clear liquids. 2. History of right upper quadrant pain and irritable bowel syndrome. High suspicion for cholecystitis. Gallbladder ultrasound as above.. 3. Hypertension. Continue lisinopril 5 mg daily, Lopressor 25 mg twice daily, hydralazine 20 g IV push every 4 hours as needed 4. Diabetes mellitus type 2. Actos on hold. Continue NovoLog scale before meals and at bedtime 5. Benign prostatic hypertrophy. 6. Hyperlipidemia. Statin on hold. 7. Seasonal ALLERGIES, stable. 8. Gout, chronic. 9. Hypothyroidism. Continue levothyroxine 25 g daily. 10. History of coronary artery disease status post 1 vessel CABG, stable. 11. DVT prophylaxis. Heparin subcu. 12. GI prophylaxis. Protonix IV. Discharge plan: Home without home care. Impression and plan of care have been directed as dictated by the signing physician. Therese Francois nurse practitioner acting as scribe for signing physici an.
[2019-10-22 16:33] LABS: Glucose,Whole Blood 185 mg/dL (75-99)
[2019-10-22 20:20] LABS: Glucose,Whole Blood 172 mg/dL (75-99)
[2019-10-23] MEDS: SODIUM CHLORIDE 0.9% 1,000 ML IV SCH (00:02)
[2019-10-23 01:43] VITALS: PULSE 56; RESP 18
[2019-10-23] MEDS: LEVOTHYROXINE 25 MCG TAB PO SCH (05:59)
[2019-10-23 06:39] LABS: Glucose,Whole Blood 110 mg/dL (75-99)
[2019-10-23] MEDS: INSULIN ASPART (NovoLOG) 100 UNIT/ML VIAL SQ SCH (07:04)
[2019-10-23 07:33] VITALS: BP 155/65; TEMP 98.1
[2019-10-23] MEDS: PIPERACILLIN-TAZOBACTAM 3.375 GM in SODIUM CHLORIDE 0.9% 100 ML IVPB SCH (08:06)
[2019-10-23] MEDS: PANTOPRAZOLE 40 MG/10 ML VIAL IVP SCH (08:06)
[2019-10-23] MEDS: LISINOPRIL 5 MG TAB PO SCH (08:06)
[2019-10-23] MEDS: GABAPENTIN 100 MG CAP PO SCH (08:06)
[2019-10-23] MEDS: HEPARIN SODIUM,PORCINE 5,000 UNIT/ML 1 ML VIAL SQ SCH (08:06)
[2019-10-23] MEDS: METOPROLOL TARTRATE 25 MG TAB PO SCH (08:06)
--- NOTE | 2019-10-23 12:12 | P.DS ---
Providers Date of admission: 10/20/19 14:33 Expected date of discharge: 10/23/19 Attending physician: Margaux Brock Consults: 10/20/19 14:50 Consult Physician Stat Consulting Provider: Bernadine Fonseca Consult Reason/Comments: Acute diverticulitis with perforation Do you want consulting provider notified?: Yes Primary care physician: Guzman Olvera [facility] Course: This is an 89-year-old male patient of Dr. Olvera with past medical history of diabetes mellitus type 2, hypertension, coronary artery disease status post 1 vessel CABG [address] Hanson and follows with tin pourer, Dr. RIMA Oh, history of TIA, benign prostatic hypertrophy, seasonal ALLERGIES, hypothyroidism, generalized osteoarthritis, chronic anemia. He was last hospitalized in September 2018 at which time he was treated for acute ileitis secondary to gastroenteritis, acute transaminitis likely secondary to hypoperfusion. Patient complains of symptoms starting initially with diarrhea and intermittent abdominal pain on and off for one month. He also had some vomiting that went away. He denies any recent intake of nuts or seeds. No blood in his stools. Pain is located in the right lower quadrant and right flank area. He denies any chest pain or shortness of breath. Patient came into [facility] emergency center for evaluation where he was found to be afebrile, blood pressure 138/72, pulse 79 and pulse ox 90% on room air. White count was normal, hemoglobin 10.9, BUN 27, creatinine 1.29, blood sugar 144. Electrolytes and liver function tests were within normal limits, troponin normal. Urinalysis clear. EKG is a sinus rhythm with a first- degree block with no acute changes. CAT scan of the abdomen and pelvis revealed bowel wall thickening of the sigmoid colon with numerous diverticula and pericolonic inflammatory changes likely on the basis of acute diverticulitis. Small air collection adjacent to the bowel wall suspicious for perforation and small amount of free air. Follow-up to resolution to exclude underlying neoplasm. Severe cardiomegaly. Patient has been admitted to the MedSur floor, started on IV antibiotics and IV fluids and consult with general surgery. 10/22: Patient continues to have right lower quadrant pain and tenderness, improved from yesterday. He is passing gas. No nausea or vomiting. General surgery has advanced his diet to clear liquid. Gallbladder ultrasound revealed increased attenuation to the liver is nonspecific and may be seen with hepatic steatosis, diffuse hepatocellular disease or hepatitis. Patient has been afebrile, heart rate 52, blood pressure 144/63, pulse ox 96% on room air. Repeat lab work reveals a stable hemoglobin at 10.2, creatinine is 1.16, blood sugars running between 72 and 130. Liver function tests within normal limits. 10/23:today, patient's abdomen is softer and decreased soreness to the abdomen. Patient has been ambulating in his room in his nurse states he has been doing very well. Patient being ambulated in the hallway prior to discharge. He is tolerating a low fiber diet without nausea or vomiting. He did have a loose bowel movement last evening.patient has been afebrile, heart rate 56, blood pressure 155/65, pulse ox 92-94% on room air.patient will be discharged home today in stable condition. Discharge diagnoses: 1. Abdominal pain secondary to acute perforated diverticulitis. 2. History of right upper quadrant pain and irritable bowel syndrome. High suspicion for cholecystitis. 3. Hypertension. 4. Diabetes mellitus type 2. 5. Benign prostatic hypertrophy. 6. Hyperlipidemia. 7. Seasonal ALLERGIES, stable. 8. Gout, chronic. 9. Hypothyroidism. 10. History of coronary artery disease status post 1 vessel CABG, stable. Discharge plan: Home without home care. Impression and plan of care have been directed as dictated by the signing physician. Therese Francois nurse practitioner acting as scribe for signing physician. Patient Condition at Discharge: Good Plan - Discharge Summary Discharge Rx Participant: No New Discharge Prescriptions: New Ciprofloxacin HCl [Cipro] 500 mg PO Q12HR #14 tablet metroNIDAZOLE [Flagyl] 500 mg PO Q8HR #21 tab Lisinopril [Zestril] 5 mg PO DAILY #30 tab Continue Pioglitazone [Actos] 30 mg PO DAILY Gabapentin [Neurontin] 100 mg PO DAILY Levothyroxine Sodium 25 mcg PO DAILY Allopurinol [Zyloprim] 100 mg PO DAILY Aspirin 81 mg PO DAILY Acetaminophen Tab [Tylenol] 650 mg PO Q6H PRN PRN Reason: Pain Pravastatin Sodium [Pravachol] 20 mg PO HS Metoprolol Tartrate [Lopressor] 25 mg PO BID Loratadine 10 mg PO DAILY Cholecalciferol [Vitamin D3 (25 Mcg = 1000 Iu)] 2,000 unit PO DAILY Dicyclomine HCl 10 mg PO QID PRN PRN Reason: Pain Cyanocobalamin [Vitamin B-12] 500 mcg PO DAILY Turmeric Root Extract [Turmeric] 500 mg PO DAILY Discontinued Lisinopril [Zestril] 2.5 mg PO DAILY Discharge Medication List Allopurinol [Zyloprim] 100 mg PO DAILY 10/05/18 [History] Aspirin 81 mg PO DAILY 10/05/18 [History] Gabapentin [Neurontin] 100 mg PO DAILY 10/05/18 [History] Levothyroxine Sodium 25 mcg PO DAILY 10/05/18 [History] Pioglitazone [Actos] 30 mg PO DAILY 10/05/18 [History] Acetaminophen Tab [Tylenol] 650 mg PO Q6H PRN 10/20/19 [History] Cholecalciferol [Vitamin D3 (25 Mcg = 1000 Iu)] 2,000 unit PO DAILY 10/20/19 [History] Cyanocobalamin [Vitamin B-12] 500 mcg PO DAILY 10/20/19 [History] Dicyclomine HCl 10 mg PO QID PRN 10/20/19 [History] Loratadine 10 mg PO DAILY 10/20/19 [History] Metoprolol Tartrate [Lopressor] 25 mg PO BID 10/20/19 [History] Pravastatin Sodium [Pravachol] 20 mg PO HS 10/20/19 [History] Turmeric Root Extract [Turmeric] 500 mg PO DAILY 10/20/19 [History] Ciprofloxacin HCl [Cipro] 500 mg PO Q12HR #14 tablet 10/23/19 [Rx] Lisinopril [Zestril] 5 mg PO DAILY #30 tab 10/23/19 [Rx] metroNIDAZOLE [Flagyl] 500 mg PO Q8HR #21 tab 10/23/19 [Rx] Follow up Appointment(s)/Referral(s): Bernadine Fonseca MD [STAFF PHYSICIAN] - 11/12/19 11:20 am Guzman Olvera MD [Primary Care Provider] - 10/30/19 10:15 am Patient Instructions/Handouts: Diverticulitis (DC), Low Fiber Diet (DC) Activity/Diet/Wound Care/Special Instructions: Low fiber diet Discharge Disposition: HOME SELF-CARE
--- NOTE | 2019-10-23 12:18 | P.PN ---
Subjective Progress Note Date: 10/23/19 CHIEF COMPLAINT: Diverticulitis HISTORY OF PRESENT ILLNESS: Patient examined this morning at the bedside. He denies abdominal pain. Passing flatus. Denies nausea or vomiting. Vital signs stable. Afebrile. PHYSICAL EXAM: VITAL SIGNS: Reviewed. GENERAL: Well-developed in no acute distress. HEENT: No sclera icterus. Extraocular movements grossly intact. Moist buccal mucosa. Head is atraumatic, normocephalic. ABDOMEN: Soft. Nondistended. Nontender. NEUROLOGIC: Alert and oriented. Cranial nerves II through XII grossly intact. ASSESSMENT: 1. Diverticulitis with localized perforation PLAN: Continue diet as tolerated. Patient stable for discharge home today from a surgical standpoint. Patient to be discharged on oral antibiotics. He is to follow-up with Dr. Fonseca outpatient. Nurse practitioner note has been reviewed by physician. Signing provider agrees with the documented findings, assessment, and plan of care. Objective - Vital Signs Vital signs: Vital Signs Temp 98.1 F 10/23/19 07:00 Pulse 56 L 10/23/19 08:00 Resp 18 10/23/19 08:00 BP 155/65 10/23/19 07:00 Pulse Ox 92 L 10/23/19 07:00 Intake & Output 10/22/19 10/23/19 10/23/19 18:59 06:59 18:59 Intake Total 240 Balance 240 Weight 87.09 kg Intake: Intake, IV Titration 240 Amount Piperacillin-Tazobactam 3 100 .375 gm In Sodium Chloride 0.9% 100 ml @ 25 mls/hr IVPB Q8HR [facility] Rx# :[id number] Sodium Chloride 0.9% 1, 140 000 ml @ 70 mls/hr IV . [id number] Rx#:[id number] Other: Voiding Method Toilet Toilet Toilet # Voids 2 1 - Labs CBC & Chem 7: 10/22/19 09:33 10/22/19 09:33 Labs: Abnormal Lab Results - Last 24 Hours (Table) 10/22/19 10/22/19 10/23/19 Range/Units 16:31 20:18 06:37 POC Glucose (mg/dL) 185 H 172 H 110 H (75-99) mg/dL Microbiology - Last 24 Hours (Table) 10/20/19 16:15 Blood Culture - Preliminary Blood No Growth after 48 hours
== END 2019-10-23 11:48 | disposition home or self-care (01) | DRG 392 ==
LOC: EC 11:13 → 4SSUR 14:33
PROVIDERS: ADMIT Internal Medicine; ATTEND Internal Medicine
DX: K57.20 Diverticulitis of large intestine with perforation and abscess without bleeding (principal); K90.49 Malabsorption due to intolerance, not elsewhere classified; E11.9 Type 2 diabetes mellitus without complications; D64.9 Anemia, unspecified; E03.9 Hypothyroidism, unspecified; E78.5 Hyperlipidemia, unspecified; I25.5 Ischemic cardiomyopathy; I11.9 Hypertensive heart disease without heart failure; I44.0 Atrioventricular block, first degree; N28.9 Disorder of kidney and ureter, unspecified; N40.0 Benign prostatic hyperplasia without lower urinary tract symptoms; J45.909 Unspecified asthma, uncomplicated; M1A.9XX0 Chronic gout, unspecified, without tophus (tophi); I25.10 Atherosclerotic heart disease of native coronary artery without angina pectoris; K21.9 Gastro-esophageal reflux disease without esophagitis; K58.0 Irritable bowel syndrome with diarrhea; M15.9 Polyosteoarthritis, unspecified; M54.5 Low back pain; H91.90 Unspecified hearing loss, unspecified ear; Z95.1 Presence of aortocoronary bypass graft; Z79.82 Long term (current) use of aspirin; Z79.84 Long term (current) use of oral hypoglycemic drugs; Z79.890 Hormone replacement therapy; Z79.899 Other long term (current) drug therapy; Z87.891 Personal history of nicotine dependence; Z98.890 Other specified postprocedural states; Z86.73 Personal history of transient ischemic attack (TIA), and cerebral infarction without residual deficits; Z82.49 Family history of ischemic heart disease and other diseases of the circulatory system; Z83.79 Family history of other diseases of the digestive system
CPT/HCPCS: 36415; 74176; 76705; 80053; 81001; 83605; 83690; 84484; 85025; 85610; 85730; 87040; 93005; 96360; 96361; 99285